=== PATIENT | male | born 1950 | race Caucasian/White ===

== ENCOUNTER 2019-11-28 21:05 | Inpatient (IN) | payer MEDICARE, SELFPAY ==
--- NOTE | ~2019-11-28 | XR_ITS ---
EXAMINATION: XR chest 1V portable INDICATION: Weakness and fever TECHNIQUE: Portable AP chest at 2235 hours COMPARISON: 10/14/2007 FINDINGS: The lungs are free of acute opacities. There is no pleural effusion or pneumothorax. The ca rdiomediastinal silhouette is normal. IMPRESSION: 1. No acute cardiopulmonary abnormality. Reviewed, dictated and finalized at location A.
--- NOTE | ~2019-11-28 | CT_ITS ---
EXAMINATION: CT abdomen pelvis w con DATE: 11/29/2019 04:30 INDICATION: Abdominal pain, diarrhea TECHNIQUE: Computed tomography (CT) of the abdomen and pelvis was performed with 100 cc Omnipaque 350 intravenous contrast. Automated exposure control and iterative reconstruction technique were employe d. Exam dose: 460.49 mGy-cm total exam DLP. COMPARISON: 10/10/2006 CT abdomen FINDINGS: The lung bases are clear of infiltrate or consolidation. Normal heart size. No pericardial or pleural effusion. Small sliding hiatal hernia. Status post cholecystectomy. 1.3 cm cyst at the inferior tip of the right hepatic lobe; probable several millimeter hepatic dome c yst. The liver, spleen, pancreas, bile ducts and pancreatic duct, and adrenal glands are otherwise un remarkable. Approximately 1 cm left renal cyst. Probable 4 mm right renal cyst. No urinary tract calculus or hydroureteronephrosis. There is mild to moderate diffuse urinary bladder wall thickening. There is prostate enlargement and calcification. There is atherosclerotic calcification but normal caliber of the abdominal aorta and iliac arteries. No intraperitoneal or retroperitoneal or pelvic mass lesion or adenopathy or ascites. Normal appendix. There is thickening of the wall and pericholecystic fat stranding of the right colon up to the hepati c flexure, consistent with acute colitis. No intraperitoneal free air. There is a small amount of olena e fluid in the dependent pelvis. Degenerative changes of lumbar spine including severe degenerative disc disease and mild retrolisthes is at L2-3, mildly severe degenerative disc disease at L5-S1 with minimal retrolisthesis. There is grade 1 anterolisthesis at L4-5 due to degenerative change at the apophyseal joints. No suspicious osteolytic or osteoblastic lesions are detected. IMPRESSION: Right colitis Small sliding hiatal hernia Normal appendix Status post cholecystectomy Hepatic and renal cysts Reviewed, dictated and finalized at Location [facility]. Reviewed, dictated and finalized at location A.
[2019-11-28 21:35] VITALS: BP 128/75; PULSE 114; RESP 16; TEMP 39.4; O2SAT 99
[2019-11-28 22:01] LABS: Basophils Percent Auto 0.2 % (0.2-1.2); Hematocrit 42.8 % (42.0-52.0); Hemoglobin 15.6 g/dL (14.0-18.0); Immature Granulocyte Absolute 0.05 K/mm3 (0.00-0.031); Immature Granulocyte Percent A 0.4 % (0-0.5); Lymphocytes Absolute Auto 0.57 K/mm3 (0.9-3.2); Lymphocytes Percent Auto 4.7 % (18.3-44.2); Mean Corpuscular HGB Conc 36.4 g/dl (32-36); Mean Corpuscular Hemoglobin 35.1 pg (26-34); Mean Corpuscular Volume 96.2 fl (80-100); Mean Platelet Volume 9.3 fl (7.4-10.4); Monocytes Absolute Auto 0.8 K/mm3 (0.1-0.6); Monocytes Percent Auto 6.8 % (2.6-8.5); Neutrophils Absolute Auto 10.6 K/mm3 (1.3-6.7); Neutrophils Percent Auto 87.9 % (45.5-73.1); Platelet Count Result 161 k/mm3 (150-375); Red Blood Count 4.45 M/mm3 (4.6-6.20); Red Cell Distribution Width 11.9 % (11.5-14.5); White Blood Count 12.1 K/mm3 (4.5-10.0)
--- NOTE | 2019-11-28 22:04 | ED.FEVER ---
HPI - Fever General Chief Complaint: Fever Stated Complaint: possible covid-19, fever increasing Time Seen by Provider: 11/28/19 22:01 Source: RN notes reviewed History of Present Illness HPI Narrative: Patient presents emergency department from home for fever. He states that symptoms began yesterday. States has been having intermittent fevers states he is taken no Tylenol or medication for the fever today. He states his only associated symptom is some diarrhea. He denies any rhinorrhea sore throat cough shortness of breath chest pain abdominal pain nausea vomiting or any other symptoms. Patient denies any COVID contacts Related Data Allergies Allergy/AdvReac Type Severity Reaction Status Date / Time No Known Allergies Allergy Unknown Verified 01/22/19 13:08 Review of Systems Review of Systems: Narrative: Gen.: Reports fever Eyes: Denies eye pain or visual change ENT: Denies congestion Respiratory: Denies shortness of breath or cough CV: Denies chest pain or palpitations GI: Denies abdominal pain nausea, emesis ports diarrhea denies burning, urgency, frequency or hematuria Musculoskeletal: Denies back pain or muscle pain Neuro: Denies numbness, tingling, reports generalized weakness Skin: Denies rash Except as documented, all other systems reviewed and negative [facility] Past Medical History Medical History (Updated 11/29/19 @ 04:02 by Rudy Vaz DO) Gastro-esophageal reflux disease without esophagitis Surgical History Surgical History Status post laparoscopic cholecystectomy Family History Family History Father Family history of aortic aneurysm Sibling Patient's sister is in good health Social History Social History Years smoked: 12 Smoking status: Former smoker Tobacco type: cigarettes and pipe Second hand tobacco smoke exposure: No Smoking end date: 02/21/99 Alcohol intake: current Drinks per week: 4 Substance use: never Substance use type: does not use Gender identity (if verbalized by the patient): Male Exam Narrative: Exam Narrative: APPEARANCE: No acute distress, nontoxic, resting in bed EYES: EOMI HEENT: Normocephalic, atraumatic, OMM RESPIRATORY: No respiratory distress Clear to auscultation bilaterally with no rhonchi wheezing or rales. CARDIOVASCULAR: Regular rate and rhythm without murmurs rubs or gallops. ABDOMINAL: Soft, nontender, nondistended, no rebound or guarding MUSCULOSKELETAl: Moves all extremities. No clubbing, cyanosis or edema. NEURO: Awake and alert. Following commands, speech normal, no focal deficits SKIN:: Warm, dry. No rashes lesions or abrasions PSYCHIATRIC: Normal affect/mood, Course [employer] Physician Supervision Discussed with Dr. Rodriguez presentation work-up. Agrees with plan for covert swab and discharge follow-up as an outpatient Patient with several episodes of watery diarrhea in the ED. Denies any recent travel or recent antibiotics started noticing mild pain on the right abdomen will obtain CT scan at this time Discussed with Dr. Camejo presentation work-up. Agrees with admission at this time Discussed with patient and family results of workup and diagnosis. Discussed need for admission. Patient and family understand and agree to current treatment plan Vital Signs Vital signs: Vital Signs Temperature 103.0 F H 11/28/19 21:35 Pulse Rate 114 H 11/28/19 21:35 Respiratory Rate 16 11/28/19 21:35 Blood Pressure 128/75 11/28/19 21:35 Pulse Oximetry 99 11/28/19 21:35 Temperature 101.8 F H 11/29/19 00:00 Pulse Rate 92 11/28/19 23:57 Respiratory Rate 18 11/28/19 23:57 Blood Pressure 119/71 11/28/19 23:57 Pulse Oximetry 98 11/28/19 23:57 MDM - Fever Lab Data Result diagrams: 11/28/19 21:51 11/28/19 21:51 Labs: L
[2019-11-28 22:15] LABS: Lactic Acid Reflex 0.8 mmol/L (0.7-2.1)
[2019-11-28 22:16] VITALS: BP 130/80; PULSE 107; RESP 18; O2SAT 98
[2019-11-28 22:16] LABS: Alanine Aminotransferase 14 U/L (4-50); Albumin Level 4.3 g/dL (3.5-5.1); Alkaline Phosphatase 54 U/L (38-126); Anion Gap 11 mmol/L (8-16); Aspartate Amino Transferase 29 U/L (17-59); Bilirubin,Total 1.5 mg/dL (0.2-1.3); Blood Urea Nitrogen 10 mg/dL (9-20); Calcium 8.9 mg/dL (8.4-10.2); Carbon Dioxide 28 mmol/L (22-30); Chloride 93 mmol/L (98-107); Estimated Glomerular Filt Rate > 60; Glucose 114 mg/dL (75-110); Potassium 3.9 mmol/L (3.4-5.0); Sodium 132 mmol/L (137-145)
[2019-11-28 22:28] VITALS: RESP 18
[2019-11-28] MEDS: SODIUM CHLORIDE 0.9% IV 1,000 ML 999 ML IV CONT (23:22)
[2019-11-28 23:29] LABS: Add Urine Microscopic? YES; Appearance Urine Cloudy (Clear); Bacteria Urine Trace /hpf; Bilirubin Urine Negative (Negative); Blood Urine 2+ (Negative); Color Urine Yellow (Yellow); Glucose Urine UA Negative (Negative); Ketones Urine 1+ mg/dL (Negative); Leukocyte Esterase Ur Negative LEU/UL (Negative); Mucus Urine Heavy /lpf; Nitrate Urine Negative (Negative); Protein Urine 1+ mg/dL (Negative); Specific Grav Ur 1.015 (1.001-1.035); Squamous Epithelial Cell Urine Rare /hpf (Few); Urobilinogen Urine Negative mg/dL (<2.0); WBC Urine 0-3 /hpf
[2019-11-28 23:51] VITALS: TEMP 38.3
[2019-11-28 23:57] VITALS: BP 119/71; PULSE 92; RESP 18; O2SAT 98
[2019-11-29] VITALS (16 sets, daily range): BP systolic 99–131; BP diastolic 51–73; PULSE 76–107; RESP 16–18; TEMP 36.8–39.6; O2SAT 97–98; BMI 26.4
--- NOTE | 2019-11-29 04:08 | PC.NURSE ---
Per House Sup/Tom, Dr. Camejo wants COVID swab cancelled. Lab/Myriam notified.
[2019-11-29] MEDS: KETOROLAC 30 MG/ML VIAL (*BKC) IV PUSH (05:01)
--- NOTE | 2019-11-29 05:09 | ADMGEN ---
This patient, Francisco Renteria, was admitted to [facility] Surg Room 314-01. Patient/family oriented to hospital policies and general routines including ID bracelet, bed and alarms, visiting hours, pain management, procedures, bathroom and other care routines, personal items, smoking policy, room service/diet, and visiting hours. Valuables list has been completed. Information on how to activate the Rapid Response Team has been discussed. Patient/Family are encouraged to report perceived risks to care and to ask questions if they do not understand what they are told or what they should do.
[2019-11-29] MEDS: SODIUM CHLORIDE 0.9% IV 1,000 ML 125 ML IV CONT (05:19)
[2019-11-29] MEDS: ACETAMINOPHEN 325 MG TABLET 650 MG PO ×3 (06:15→18:47)
--- NOTE | 2019-11-29 07:00 | PC.NURSE ---
Relocated to room 328 per hospital bed. Belongings sent and verified.
[2019-11-29] MEDS: CYANOCOBALAMIN 1,000 MCG TABLET 1000 MCG PO (09:22)
[2019-11-29] MEDS: PANTOPRAZOLE 40 MG TABLET PO (09:22)
[2019-11-29] MEDS: OPTI-GEN TAB 1 TABLET PO (09:23)
--- NOTE | 2019-11-29 09:46 | PM.IMHP ---
H&P: HPI History of Present Illness Date/Time: 11/29/19 09:46 Chief complaint: Fevers and watery diarrhea x 3 days Narrative: Francisco Renteria is a 69 year old male with history of GERD, diverticulosis irritable bowel syndrome, who presented to the ED on 11/27 from home with complaints of fevers and associated watery, nonbloody diarrhea for 2-3 days. Patient states his symptoms started suddenly and has had persistent subjective fevers/chills/rigors until presentation to ER; these seem to have resolved today. He has multiple episodes of watery, nonbloody diarrhea since symptoms started with him sometimes not making it to the bathroom in time; this has somewhat improved. He had mild cramping in lower abdomen last night which resolved realtively quickly; no current abdominal pain. No associated n/v. He has no sick contacts at home particularly with similar symptoms. Patient states he has never had this before, although upon chart review it appears he has colitis episode in 2006 is listed on past history, although CT a/p at that time makes no mention of this, but mentions diverticulosis with questionable minimal diverticulitis at right hepatic flexure. Denies history of IBD, or oral lesions. He was swabbed in the ED for COVID due to his fevers, but this appeared to be d/c overnight; he denies any close contacts with positive COVID testing/COVID symptoms, and has remained primarily at home while practicing social distancing and wearing masks if going in public. He denies any respiratory symptoms or loss of taste/smell. Otherwise patient has no other complaints at the moment. Denies myalgias/arthralgias, headaches, dizziness, lightheadedness, changes in v/h, cp/palpitations, sob/cough, n/v, current abd pain, dysuria, hematuria, cloudy urine, calf pain/swelling. While in the ED, CT ab/pelvis showed evidence of right sided colitis. He has tmax of 103.2 and WBC of 12.1k and tachycardia at presentation, meeting SIRS criteria with Colitis as suspected source of infection, technically septic. Blood cultures were drawn and are pending. Lactic acid WNL. He was placed on IV zosyn and IV fluids and admitted under this setting. Review of Systems Review of Systems: All systems reviewed & are unremarkable except as noted in HPI and below PMFSH Past Medical History Medical History Diverticulosis Gastro-esophageal reflux disease without esophagitis History of colitis Pure hypercholesterolemia Surgical History Surgical History Status post laparoscopic cholecystectomy Family History Family History Father Family history of aortic aneurysm Sibling Patient's sister is in good health Social History Social History Social History: Patient lives at home with , Siri, whom he designates as his surrogate MDM. He wishes to be Full Code. PCP is Dr. Rodriguez. Years smoked: 12 Smoking status: Former smoker Tobacco type: cigarettes and pipe Second hand tobacco smoke exposure: No Smoking end date: 02/21/99 Alcohol intake: current Drinks per week: 4 Substance use: never Substance use type: does not use Gender identity (if verbalized by the patient): Male Spiritual care concerns: No Meds Home Medications and Allergies Home Medications Medication Instructions Recorded Confirmed Type esomeprazole magnesium 40 mg 40 mg PO DAILY #90 cap 04/25/19 11/29/19 Rx capsule,delayed release cyanocobalamin (vitamin B-12) 1,000 mcg PO DAILY 11/29/19 11/29/19 History pewlarow-iqj-UY-lycopen-lutein 1 tablet PO DAILY 11/29/19 11/29/19 History [[facility]] Allergies Allergy/AdvReac Type Severity Reaction Status Date / Time No Known Allergies Allergy Unknown Verified 01/22/19 13:08 Vital Signs Vital Sig
[2019-11-29 09:52] LABS: Hematocrit 42.5 % (42.0-52.0); Hemoglobin 15.3 g/dL (14.0-18.0); Mean Corpuscular Hemoglobin 35.4 pg (26-34); Mean Corpuscular Volume 98.4 fl (80-100); Mean Platelet Volume 9.1 fl (7.4-10.4); Platelet Count Result 144 k/mm3 (150-375); Red Blood Count 4.32 M/mm3 (4.6-6.20); White Blood Count 10.9 K/mm3 (4.5-10.0)
[2019-11-29 10:06] LABS: Albumin Level 4.2 g/dL (3.5-5.1); Alkaline Phosphatase 46 U/L (38-126); Anion Gap 13 mmol/L (8-16); Aspartate Amino Transferase 34 U/L (17-59); Bilirubin,Total 1.4 mg/dL (0.2-1.3); Blood Urea Nitrogen 14 mg/dL (9-20); Calcium 8.7 mg/dL (8.4-10.2); Carbon Dioxide 25 mmol/L (22-30); Chloride 95 mmol/L (98-107); Estimated CRCL calculation 59 ml/min; Estimated Glomerular Filt Rate > 60; Glucose 141 mg/dL (75-110); Potassium 3.6 mmol/L (3.4-5.0); Sodium 133 mmol/L (137-145)
[2019-11-29 10:10] LABS: Atypical Lymphocytes Present; Platelet Estimate Adequate (Adequate)
[2019-11-29 10:11] LABS: Band Neutrophils Percent 4 % (0-6); Lymphocytes Absolute Manual 0.76 K/mm3 (1.1-4.5); Lymphocytes Percent Manual 7 % (18-44); Monocytes Absolute Manual 0.65 K/mm3 (0.1-0.90); Monocytes Percent Manual 6 % (3-9); Neutrophils Absolute Manual 9.48 K/mm3 (1.3-6.7); Neutrophils Percent Manual 83 % (46-73); Total Cells Counted 100
[2019-11-29 10:13] LABS: Alanine Aminotransferase 20 U/L (4-50)
--- NOTE | 2019-11-29 16:11 | WPDGICN ---
Assessment and Plan Assessment and plan (1) Diarrhea: Code(s): R19.7 - Diarrhea, unspecified Status: Acute Assessment and Plan: stool samples pending, he has been sick for almost 3 days. Also is interesting that he got a new puppy just recently continue with medical care, fluids and antibiotics (2) Colitis: Code(s): K52.9 - Noninfective gastroenteritis and colitis, unspecified Status: Acute Assessment and Plan: found by ct scan will need a colonoscopy in about 4-5 weeks to assess for healing (3) Sepsis: Code(s): A41.9 - Sepsis, unspecified organism Status: Acute Assessment and Plan: due to colitis covid-19 pending (4) Gastro-esophageal reflux disease without esophagitis: Code(s): K21.9 - Gastro-esophageal reflux disease without esophagitis Status: Acute Assessment and Plan: chronically on ppi (5) Leukocytosis: Code(s): D72.829 - Elevated white blood cell count, unspecified Status: Acute GI Consult Note Consult date/time: 11/29/19 16:11 Reason for consult: colitis HPI: Francisco Renteria is a 69 year old male with history of GERD, diverticulosis, cholecystectomy, irritable bowel syndrome with last colonoscopy years ago, who came to the ED yesterday 3 days of chills, fever and several episodes of runny,nonbloody large amount of diarrhea. He had fever up to 103, also leukocytosis 12k. CT scan showed right sided colitis. No much of abdominal pain. Stool samples and COVID-19 test pending. He says that about 2 weeks ago he got a new puppy. Review of Systems Constitutional: Constitutional: Reports chills and Reports fever(s) Eyes: Eyes: Denies blurry vision ENT: Reports Normal hearing present, Denies headache(s) and Denies neck pain Cardiovascular: Cardiovascular: Denies chest pain and Denies dyspnea Respiratory: Respiratory: Denies dyspnea Gastrointestinal: Gastrointestinal: Reports diarrhea Genitourinary: Genitourinary: Denies dysuria Musculoskeletal: Musculoskeletal: Denies neck pain Integumentary/Breasts: Skin/Breast: Denies dry skin Neurologic: Reports Normal hearing present, Denies headache(s) and Denies weakness Psychiatric: Psychiatric: Denies anxiety Endocrine: Endocrine: Denies change in body appearance Hematologic/Lymphatic: Hematologic/Lymphatic: Denies easy bleeding Allergic/Immunologic: Allergic/Immunologic: Denies urticaria PMFSH Past Medical History Medical History (Updated 11/29/19 @ 16:16 by Tony Clemente MD) Diarrhea Diverticulosis Gastro-esophageal reflux disease without esophagitis History of colitis Leukocytosis Pure hypercholesterolemia Surgical History Surgical History Status post laparoscopic cholecystectomy Family History Family History Father Family history of aortic aneurysm Sibling Patient's sister is in good health Social History Social History Social History: Patient lives at home with , Siri, whom he designates as his surrogate MDM. He wishes to be Full Code. PCP is Dr. Rodriguez. Years smoked: 12 Smoking status: Former smoker Tobacco type: cigarettes and pipe Second hand tobacco smoke exposure: No Smoking end date: 02/21/99 Alcohol intake: current Drinks per week: 4 Substance use: never Substance use type: does not use Gender identity (if verbalized by the patient): Male Spiritual care concerns: No Meds Home Medications and Allergies Home Medications Medication Instructions Recorded Confirmed Type esomeprazole magnesium 40 mg 40 mg PO DAILY #90 cap 04/25/19 11/29/19 Rx capsule,delayed release cyanocobalamin (vitamin B-12) 1,000 mcg PO DAILY 11/29/19 11/29/19 History rgvxysxf-adi-GM-lycopen-lutein 1 tablet PO DAILY 11/29/19 11/29/19 History [[facility]
[2019-11-29 16:38] LABS: SARS-CoV-2 RNA PCR Negative
[2019-11-29] MEDS: SODIUM CHLORIDE 0.9% IV 1,000 ML 80 ML IV CONT (16:52)
[2019-11-30 03:12] VITALS: TEMP 38.6
[2019-11-30] MEDS: ACETAMINOPHEN 325 MG TABLET 650 MG PO (03:12)
[2019-11-30 03:59] VITALS: TEMP 37.4
[2019-11-30 06:00] VITALS: BP 129/66; PULSE 75; RESP 16; TEMP 36.4; O2SAT 100
[2019-11-30 06:45] LABS: Hematocrit 37.2 % (42.0-52.0); Hemoglobin 13.2 g/dL (14.0-18.0); Mean Corpuscular HGB Conc 35.5 g/dl (32-36); Mean Corpuscular Hemoglobin 34.5 pg (26-34); Mean Corpuscular Volume 97.1 fl (80-100); Mean Platelet Volume 9.5 fl (7.4-10.4); Platelet Count Result 124 k/mm3 (150-375); Red Blood Count 3.83 M/mm3 (4.6-6.20)
[2019-11-30] MEDS: SODIUM CHLORIDE 0.9% IV 1,000 ML 80 ML IV CONT ×2 (06:55→21:11)
[2019-11-30 07:15] LABS: Alanine Aminotransferase 15 U/L (4-50); Albumin Level 3.4 g/dL (3.5-5.1); Alkaline Phosphatase 41 U/L (38-126); Anion Gap 6 mmol/L (8-16); Aspartate Amino Transferase 32 U/L (17-59); Blood Urea Nitrogen 9 mg/dL (9-20); Calcium 8.2 mg/dL (8.4-10.2); Carbon Dioxide 29 mmol/L (22-30); Chloride 103 mmol/L (98-107); Estimated CRCL calculation 64 ml/min; Estimated Glomerular Filt Rate > 60; Glucose 101 mg/dL (75-110); Magnesium 2.1 mg/dL (1.6-2.3); Potassium 3.5 mmol/L (3.4-5.0); Sodium 138 mmol/L (137-145)
[2019-11-30 07:44] LABS: Band Neutrophils Percent 8 % (0-6); Lymphocytes Absolute Manual 0.78 K/mm3 (1.1-4.5); Lymphocytes Percent Manual 13 % (18-44); Monocytes Absolute Manual 0.36 K/mm3 (0.1-0.90); Monocytes Percent Manual 6 % (3-9); Neutrophils Absolute Manual 4.86 K/mm3 (1.3-6.7); Neutrophils Percent Manual 73 % (46-73); Total Cells Counted 100
[2019-11-30 07:45] LABS: Platelet Estimate Adequate (Adequate)
[2019-11-30] MEDS: OPTI-GEN TAB 1 TABLET PO (10:14)
[2019-11-30] MEDS: PANTOPRAZOLE 40 MG TABLET PO (10:14)
[2019-11-30] MEDS: CYANOCOBALAMIN 1,000 MCG TABLET 1000 MCG PO (10:14)
--- NOTE | 2019-11-30 10:31 | PM.IMPN ---
Progress Note: A&P Assessment and Plan (1) Sepsis: Code(s): A41.9 - Sepsis, unspecified organism Status: Acute Assessment and Plan: Patient with tmax 103.2 (still having occasional fevers), tachycardia initially (resolved), and WBC of 12.1k on arrival (resolved, 6.0k this morning) meeting SIRS criteria; lactic acid normal; Colitis as suspected source. COVID swab obtained to rule out other etiologies; this was negative. Placed on IV Zosyn and IV fluids from the ED. Please see below. Continue treatment of colitis (2) Colitis: Code(s): K52.9 - Noninfective gastroenteritis and colitis, unspecified Status: Acute Assessment and Plan: CT ab/pelvis suggestive of Colitis. IV zosyn and IV fluids started from ED. Patient states he has seen Dr. Mcdowell in the past. Discussed case with Dr. Mcdowell who recommended stool studies and continue zosyn for now; he is out of town and thus Dr. Hopson would be consulted. This was discussed with him, as well who, agreed with current care and with consult; appreciate recommendations. C diff negative. Other stool studies pending. estrada VANNTAmilcar Obtain stool studies as described above Continue IV zosyn for now Advance to HH diet today IV fluids for today; likely d/c tomorrow if improvement in diarrhea Monitor for improvement (3) Gastro-esophageal reflux disease without esophagitis: Code(s): K21.9 - Gastro-esophageal reflux disease without esophagitis Status: Acute Assessment and Plan: Continue PPI (4) Pure hypercholesterolemia: Code(s): E78.00 - Pure hypercholesterolemia, unspecified Status: Acute Assessment and Plan: Appears to be diet controlled F/u with PCP (5) Person under investigation for COVID-19: Code(s): Z20.828 - Contact with and (suspected) exposure to other viral communicable diseases Status: Ruled-out Assessment and Plan: COVID testing negative. COVID less likely as colitis likely source of fevers with negative covid testing Subjective Date/time seen: 11/30/19 10:31 Interval history: Patient is a 69 year old male with history of GERD, diverticulosis irritable bowel syndrome, who is seen in follow up for right sided colitis. Patient states his diarrhea is still ongoing, but amount maybe slightly less. Still needing to go to the bathroom several times overnight. Notes his stool changed color to green, but denies mucus or blood in stool. Minimal abdominal cramping in his upper abdomen today. Subjective fevers currently with some feeling of sweats. No other complaints. Denies myalgias/arthralgias, headaches, dizziness, lightheadedness, cp/palpitations, sob/cough, n/v, current abd pain, dysuria, hematuria, cloudy urine, calf pain/swelling. Review of Systems Review of Systems: All systems reviewed & are unremarkable except as noted in HPI and below Exam Narrative: Exam Narrative: Patient lying in semi-wilhelm's position at time of visit. No acute distress Const: General: cooperative, comfortable, no acute distress, well developed, alert and awake Nutritional Appearance: well nourished Orientation/consciousness: patient oriented x3 HENMT: Head: normocephalic and atraumatic General nose exam: Normal nares present Face and sinus: face symmetric Mouth: Yes Normal oral and palatal mucosa present (no evidence of oral lesions) and Yes moist mucous membranes Throat: posterior oropharynx normal Eyes: General: appearance normal, both eyes and all related structures EOM: EOMs intact bilaterally Neck: Neck: trachea midline and supple Resp: Effort & Inspection: able to speak in complete sentences Auscultation: clear to auscultation bilaterally Cardio: Rate: regular rate Rhythm: regular rhythm Heart sounds: S1 nor
[2019-11-30 14:00] VITALS: BP 108/57; PULSE 83; RESP 18; TEMP 37; O2SAT 97
--- NOTE | 2019-11-30 16:53 | WPDGIPROGNO ---
Progress Note: A&P Assessment and Plan (1) Diarrhea: Code(s): R19.7 - Diarrhea, unspecified Status: Acute Assessment and Plan: stool samples obtained and pending continue with medical treatment and supportive care, already doing much better probably can go home tomorrow (2) Leukocytosis: Code(s): D72.829 - Elevated white blood cell count, unspecified Status: Acute Assessment and Plan: resolved (3) Colitis: Code(s): K52.9 - Noninfective gastroenteritis and colitis, unspecified Status: Acute Assessment and Plan: colonoscopy in 4-5 weeks to assess for healing of colitis. Subjective Date/time seen: 11/30/19 16:53 Interval history: he is doing better, no more fever, eating more and less diarrhea. He is having a better day. Review of Systems Review of Systems: All systems reviewed & are unremarkable except as noted in HPI and below Exam Const: General: comfortable and no acute distress HENMT: General nose exam: Normal nares present Eyes: General: appearance normal, both eyes and all related structures Neck: Neck: no JVD Resp: Auscultation: clear to auscultation bilaterally Cardio: Rate: regular rate Rhythm: regular rhythm GI: Inspection: non-distended GI Palp: Yes Soft to palpation Skin: General skin exam: normal color Neuro: General: gait normal Speech: normal speech Extrem: General: normal to inspection Psych: Mental Status: mental status grossly normal Objective Data Vital Signs Vital Signs: Vital Signs - 24 hr 11/29/19 17:05 11/29/19 19:43 11/29/19 22:00 Temperature 100.2 F H 100.1 F H 99.0 F Pulse Rate 90 76 Respiratory Rate 16 16 Blood Pressure 99/51 L 116/59 L Pulse Oximetry 97 97 11/30/19 03:12 11/30/19 03:59 11/30/19 06:00 Temperature 101.4 F H 99.4 F 97.5 F L Pulse Rate 75 Respiratory Rate 16 Blood Pressure 129/66 Pulse Oximetry 100 11/30/19 14:00 Temperature 98.6 F Pulse Rate 83 Respiratory Rate 18 Blood Pressure 108/57 L Pulse Oximetry 97 Intake/Output Intake/Output: Intake & Output 11/27/19 11/28/19 11/29/19 11/30/19 23:59 23:59 23:59 23:59 Intake Total 100 4420 2120 Output Total 1100 Balance 100 3320 2120 Meds/Results Medications: Active Medications Generic Name Dose Route Start Last Admin Trade Name Chiqui PRN Reason Stop Dose Admin Acetaminophen 650 mg 11/29/19 05:59 11/30/19 03:12 Acetaminophen 325 Mg Tablet PO 650 mg Q4H PRN Administration Mild Pain (1-3) or Fever Cyanocobalamin 1,000 mcg 11/29/19 09:00 11/30/19 10:14 Cyanocobalamin 1,000 Mcg Tablet PO 1,000 mcg DAILY JUWAN Administration Sodium Chloride 1,000 mls @ 80 mls/hr 11/29/19 03:55 11/30/19 06:55 Normal Saline Iv IV CONT 80 mls/hr .[id number] JUWAN Administration Piperacillin/Tazobactam/Dextrose 3.375 gm in 50 mls @ 100 mls/hr 11/29/19 10:00 11/30/19 16:35 Zosyn 3.375 Gm/D5w 50ml Pm IVPB Infused Q6H JUWAN Infusion Multivitamins/Minerals 1 tablet 11/29/19 09:00 11/30/19 10:14 Opti-Gen Tab PO 1 tablet DAILY JUWAN Administration Pantoprazole Sodium 40 mg 11/29/19 09:00 11/30/19 10:14 Pantoprazole 40 Mg Tablet PO 40 mg QAM JUWAN Administration Radiology Results: ITS Impressions Chest X-Ray 11/28/19 23:06 IMPRESSION: 1. No acute cardiopulmonary abnormality. Abdomen/Pelvis CT 11/29/19 07:55 IMPRESSION: Right colitis Small sliding hiatal hernia Normal appendix Status post cholecystectomy Hepatic and renal cysts Labs Labs: Laboratory Results - last 24 hr 11/29/19 11/30/19 11/30/19 09:50 05:57 05:57 WBC 6.0 RBC 3.83 L Hgb 13.2 L Hct 37.2 L MCV 97.1 MCH 34.5 H MCHC 35.5 RDW 12.0 Plt Count 124 L MPV 9.5 Immature Gran % (Auto) Not Reportable Neut % (Auto) Not Reportable Lymph % (Auto) Not Reportable [place] % (Auto) Not Reportable Eos % (Auto) Not Reportable
[2019-11-30 22:00] VITALS: BP 118/65; PULSE 71; RESP 16; TEMP 37.2; O2SAT 99
[2019-12-01 04:58] LABS: Hematocrit 33.8 % (42.0-52.0); Hemoglobin 12.1 g/dL (14.0-18.0); Mean Corpuscular HGB Conc 35.8 g/dl (32-36); Mean Corpuscular Hemoglobin 34.2 pg (26-34); Mean Corpuscular Volume 95.5 fl (80-100); Mean Platelet Volume 9.4 fl (7.4-10.4); Platelet Count Result 125 k/mm3 (150-375); Red Blood Count 3.54 M/mm3 (4.6-6.20); Red Cell Distribution Width 11.9 % (11.5-14.5); White Blood Count 6.8 K/mm3 (4.5-10.0)
[2019-12-01 05:25] LABS: Potassium 3.5 mmol/L (3.4-5.0)
[2019-12-01 05:29] LABS: Anion Gap 5 mmol/L (8-16); Blood Urea Nitrogen 7 mg/dL (9-20); Carbon Dioxide 29 mmol/L (22-30); Chloride 106 mmol/L (98-107); Estimated CRCL calculation 64 ml/min; Estimated Glomerular Filt Rate > 60; Glucose 98 mg/dL (75-110); Magnesium 2.1 mg/dL (1.6-2.3); Sodium 140 mmol/L (137-145)
[2019-12-01 06:00] VITALS: BP 121/63; PULSE 68; RESP 16; TEMP 36.8; O2SAT 99
[2019-12-01] MEDS: CYANOCOBALAMIN 1,000 MCG TABLET 1000 MCG PO (08:20)
[2019-12-01] MEDS: PANTOPRAZOLE 40 MG TABLET PO (08:20)
[2019-12-01] MEDS: OPTI-GEN TAB 1 TABLET PO (08:20)
[2019-12-01] MEDS: SODIUM CHLORIDE 0.9% IV 1,000 ML 80 ML IV CONT (10:22)
--- NOTE | 2019-12-01 11:13 | PM.IMPN ---
Progress Note: A&P Assessment and Plan (1) Sepsis: Code(s): A41.9 - Sepsis, unspecified organism Status: Acute Assessment and Plan: Patient with tmax 103.2 (still having occasional fevers), tachycardia initially (resolved), and WBC of 12.1k on arrival (resolved, 6.8k this morning) meeting SIRS criteria; lactic acid normal; Colitis as suspected source. COVID swab obtained to rule out other etiologies; this was negative. Placed on IV Zosyn and IV fluids from the ED. Please see below. Continue treatment of colitis (2) Colitis: Code(s): K52.9 - Noninfective gastroenteritis and colitis, unspecified Status: Acute Assessment and Plan: CT ab/pelvis suggestive of Colitis. IV zosyn and IV fluids started from ED. Patient states he has seen Dr. Mcdowell in the past. Discussed case with Dr. Mcdowell who recommended stool studies and continue zosyn for now; he is out of town and thus Dr. Hopson would be consulted. This was discussed with him, as well who, agreed with current care and with consult; appreciate recommendations. C diff, cryptosporidium, and giardia negative. Other stool studies pending. BCx NGTD Obtain stool studies as described above Continue IV zosyn for now; likely discharge on cipro and flagyl at discharge Continue HH diet Continue light IV fluids for today Monitor for improvement (3) Gastro-esophageal reflux disease without esophagitis: Code(s): K21.9 - Gastro-esophageal reflux disease without esophagitis Status: Acute Assessment and Plan: Continue PPI (4) Pure hypercholesterolemia: Code(s): E78.00 - Pure hypercholesterolemia, unspecified Status: Acute Assessment and Plan: Appears to be diet controlled F/u with PCP (5) Person under investigation for COVID-19: Code(s): Z20.828 - Contact with and (suspected) exposure to other viral communicable diseases Status: Ruled-out Assessment and Plan: COVID testing negative. COVID less likely as colitis likely source of fevers with negative covid testing Subjective Date/time seen: 12/01/19 11:13 Interval history: Patient is a 69 year old male with history of GERD, diverticulosis irritable bowel syndrome, who is seen in follow up for right sided colitis. Patient states his diarrhea is still ongoing, with about 5 BMs since about 5:00 am this morning; noting green and with some bubbles. Leos with defecation. No blood or black stool however. He was feeling better yesterday afternoon and evening, but this morning feels worse. Would feel more comfortable staying one more night since he still has frequent BMs and is unsure if he can stay adequately hydrated. No abdominal pain/cramping today and fevers/chills have resolved. No other complaints. Denies myalgias/arthralgias, headaches, dizziness, lightheadedness, cp/palpitations, sob/cough, n/v, current abd pain, dysuria, hematuria, cloudy urine, calf pain/swelling. Review of Systems Review of Systems: All systems reviewed & are unremarkable except as noted in HPI and below Exam Narrative: Exam Narrative: Patient standing with IV pole at time of visit. No acute distress Const: General: cooperative, comfortable, no acute distress, well developed, alert and awake Nutritional Appearance: well nourished Orientation/consciousness: patient oriented x3 HENMT: Head: normocephalic and atraumatic General nose exam: Normal nares present Face and sinus: face symmetric Mouth: Yes moist mucous membranes Throat: posterior oropharynx normal Eyes: General: appearance normal, both eyes and all related structures EOM: EOMs intact bilaterally Neck: Neck: trachea midline and supple Resp: Effort & Inspection: able to speak in complete sentences Auscultation: clear to
[2019-12-01 14:00] VITALS: BP 122/71; PULSE 70; RESP 16; TEMP 37.5; O2SAT 99
[2019-12-01 21:00] VITALS: BP 130/72; PULSE 61; RESP 18; TEMP 36.6; O2SAT 100
[2019-12-02] MEDS: SODIUM CHLORIDE 0.9% IV 1,000 ML 50 ML IV CONT (03:29)
[2019-12-02 05:55] VITALS: BP 128/71; PULSE 66; RESP 18; TEMP 36.7; O2SAT 100
[2019-12-02 06:00] LABS: Hematocrit 35.8 % (42.0-52.0); Hemoglobin 12.9 g/dL (14.0-18.0); Mean Corpuscular Hemoglobin 34.1 pg (26-34); Mean Corpuscular Volume 94.7 fl (80-100); Mean Platelet Volume 9.5 fl (7.4-10.4); Platelet Count Result 141 k/mm3 (150-375); Red Blood Count 3.78 M/mm3 (4.6-6.20); Red Cell Distribution Width 11.9 % (11.5-14.5); White Blood Count 4.8 K/mm3 (4.5-10.0)
[2019-12-02 06:07] LABS: Alanine Aminotransferase 23 U/L (4-50); Albumin Level 3.3 g/dL (3.5-5.1); Alkaline Phosphatase 41 U/L (38-126); Anion Gap 4 mmol/L (8-16); Aspartate Amino Transferase 38 U/L (17-59); Bilirubin,Total 0.8 mg/dL (0.2-1.3); Blood Urea Nitrogen 6 mg/dL (9-20); Calcium 8.5 mg/dL (8.4-10.2); Carbon Dioxide 31 mmol/L (22-30); Chloride 105 mmol/L (98-107); Estimated CRCL calculation 79 ml/min; Estimated Glomerular Filt Rate > 60; Glucose 99 mg/dL (75-110); Magnesium 2.2 mg/dL (1.6-2.3); Potassium 3.5 mmol/L (3.4-5.0); Sodium 140 mmol/L (137-145)
--- NOTE | 2019-12-02 08:50 | PM.DS ---
DS: Admitting Diagnosis Admitting Diagnosis Admitting Diagnosis: Fevers and watery diarrhea x 3 days DS: Discharge Diagnosis Discharge Diagnosis (1) Sepsis: Code(s): A41.9 - Sepsis, unspecified organism Status: Acute Assessment and Plan: Patient with tmax 103.2 (afebrile >24 hours), tachycardia initially (resolved), and WBC of 12.1k on arrival (resolved, 4.8k this morning) meeting SIRS criteria; lactic acid normal; Colitis as suspected source. COVID swab obtained to rule out other etiologies; this was negative. Placed on IV Zosyn and IV fluids from the ED. Please see below. Continue treatment of colitis (2) Colitis: Code(s): K52.9 - Noninfective gastroenteritis and colitis, unspecified Status: Acute Assessment and Plan: CT ab/pelvis suggestive of Colitis. IV zosyn and IV fluids started from ED. Patient states he has seen Dr. Mcdowell in the past. Discussed case with Dr. Mcdowell who recommended stool studies and continue zosyn during inpatient stay; Dr. Hopson officially consulted and followed patient. Case discussed with him, as well who, agreed with current care and with consult; appreciate recommendations. C diff, cryptosporidium, and giardia negative. Other stool studies pending. BCx NGTD Follow stool studies as described above Zosyn during stay; discharge on cipro and flagyl at discharge Continue HH diet F/u with PCP and Dr. Hopson (3) Gastro-esophageal reflux disease without esophagitis: Code(s): K21.9 - Gastro-esophageal reflux disease without esophagitis Status: Acute Assessment and Plan: Continue PPI (4) Pure hypercholesterolemia: Code(s): E78.00 - Pure hypercholesterolemia, unspecified Status: Acute Assessment and Plan: Appears to be diet controlled F/u with PCP (5) Person under investigation for COVID-19: Code(s): Z20.828 - Contact with and (suspected) exposure to other viral communicable diseases Status: Ruled-out Assessment and Plan: COVID testing negative. COVID less likely as colitis likely source of fevers with negative covid testing DS: Summary Hospital Course Reason for hospitalization: Right sided colitis Hospital Course: Patient is a 69 yo M with history of GERD, diverticulosis irritable bowel syndrome, who presented to the ED on 11/27 from home with complaints of fevers and associated watery, nonbloody diarrhea for 2-3 days. While in the ED, patient was found to have evidence of right sided colitis on CT a/p. He met SIRS criteria with leukocytosis of 12.1k, temp of 103.2 and tachycardia. He was started on IV zosyn and fluids from the ED. Patient admitted under this setting. Please see H&P for further details. Presenting VS: Temp Pulse Resp BP Pulse Ox 103.0 F H 114 H 16 128/75 99 11/28/19 21:35 11/28/19 21:35 11/28/19 21:35 11/28/19 21:35 11/28/19 21:35 Presenting Pertinent labs: WBC 12.1k, Na 132, Cl 93, tot bili 1.5. Ua showed yellow/cloudy urine, 1+ protein, 1+ ketones, 2+ blood, 3-5 RBC, and heavy mucus. COVID testing negative. Rotavirus pending at time of dictation. CBC, chemistry, UA otherwise unremarkable Micro: BCx shows NGTD x 2 after 4 days. Stool cultures positive for campylobacter species; negative for shiga toxin, salmonella/shigella, c diff toxin, cryptosporidium antigen, and giardia negative. Imaging: Chest X-Ray 11/28/19 23:06 IMPRESSION: 1. No acute cardiopulmonary abnormality. Abdomen/Pelvis CT 11/29/19 07:55 IMPRESSION: Right colitis Small sliding hiatal hernia Normal appendix Status post cholecystectomy Hepatic and renal cysts ECG: none Patient was admitted to the hospitalist service for further evaluation. Dr. Hopson was consulted for further input. Patient continued on IV
[2019-12-02] MEDS: PANTOPRAZOLE 40 MG TABLET PO (09:05)
[2019-12-02] MEDS: CYANOCOBALAMIN 1,000 MCG TABLET 1000 MCG PO (09:05)
[2019-12-02] MEDS: OPTI-GEN TAB 1 TABLET PO (09:05)
[2019-12-04 17:45] LABS: Rotavirus Stool Not Detected
== END 2019-12-02 11:30 | disposition home or self-care (01) | DRG 872 ==
LOC: ANHED 11-29 04:02 → ANH3MEDSUR 11-29 04:42
PROVIDERS: Physician Assistant; Admitting Provider Internal Medicine; Emergency Provider Emergency Medicine; PCP Family Medicine; Visit Provider Internal Medicine
DX: A41.9 Sepsis, unspecified organism (principal); K52.9 Noninfective gastroenteritis and colitis, unspecified; Z20.828 Contact with and (suspected) exposure to other viral communicable diseases; K21.9 Gastro-esophageal reflux disease without esophagitis; E78.00 Pure hypercholesterolemia, unspecified
CPT/HCPCS: 36415; 71045; 74177; 80048; 80053; 81001; 83605; 83735; 85025; 85027; 87015; 87040; 87045; 87046; 87077; 87177; 87209; 87269; 87272; 87324; 87425; 87427; 87635; 96361; 96365; 96375; 99285; A9270; C9803; G0378; J0131; J1885; J2543; J7030; Q9967; U0003

== ENCOUNTER 2019-12-20 10:32 | Outpatient (CLI) | payer MEDICARE, SELFPAY ==
[2019-12-20 11:10] LABS: Basophils Percent Auto 0.3 % (0.2-1.2); Eosinophils Percent Auto 0.5 % (0-4.4); Hematocrit 43.7 % (42.0-52.0); Hemoglobin 15.3 g/dL (14.0-18.0); Immature Granulocyte Absolute 0.03 K/mm3 (0.00-0.031); Immature Granulocyte Percent A 0.5 % (0-0.5); Lymphocytes Percent Auto 19.9 % (18.3-44.2); Mean Corpuscular Hemoglobin 33.9 pg (26-34); Mean Corpuscular Volume 96.9 fl (80-100); Mean Platelet Volume 8.8 fl (7.4-10.4); Monocytes Absolute Auto 0.7 K/mm3 (0.1-0.6); Neutrophils Absolute Auto 4.1 K/mm3 (1.3-6.7); Neutrophils Percent Auto 67.8 % (45.5-73.1); Platelet Count Result 191 k/mm3 (150-375); Red Blood Count 4.51 M/mm3 (4.6-6.20); Red Cell Distribution Width 12.3 % (11.5-14.5)
[2019-12-20 11:19] LABS: Alanine Aminotransferase 17 U/L (4-50); Albumin Level 4.5 g/dL (3.5-5.1); Alkaline Phosphatase 59 U/L (38-126); Anion Gap 7 mmol/L (8-16); Aspartate Amino Transferase 25 U/L (17-59); Bilirubin,Total 1.8 mg/dL (0.2-1.3); Blood Urea Nitrogen 9 mg/dL (9-20); Calcium 9.5 mg/dL (8.4-10.2); Carbon Dioxide 34 mmol/L (22-30); Chloride 99 mmol/L (98-107); Estimated Glomerular Filt Rate > 60; Glucose 108 mg/dL (75-110); Potassium 3.9 mmol/L (3.4-5.0); Sodium 140 mmol/L (137-145)
== END 2019-12-20 10:33 | disposition home or self-care (01) ==
PROVIDERS: PCP Family Medicine; Visit Provider Family Medicine
DX: K52.9 Noninfective gastroenteritis and colitis, unspecified (principal)
CPT/HCPCS: 36415; 80053; 85025

== ENCOUNTER 2019-12-20 13:32 | Emergency (ER) | payer MEDICARE, SELFPAY ==
[2019-12-20 13:38] VITALS: BP 150/78; PULSE 82; RESP 16; TEMP 36.9; O2SAT 100
--- NOTE | 2019-12-20 13:55 | ECG_ITS ---
Measurements Intervals [place] Rate: 74 P: 67 IN: 158 QRS: 19 QRSD: 104 T: 47 QT: 362 QTc: 403 Interpretive Statements SINUS RHYTHM BASELINE ARTIFACT- I, II, AVR, AVL, AVF, V1 NORMAL ECG Electronically Signed On 12-20-2019 14:05:29 CDT by Benny Hare D.O.
[2019-12-20 14:06] LABS: Basophils Percent Auto 0.3 % (0.2-1.2); Eosinophils Percent Auto 0.3 % (0-4.4); Hemoglobin 14.7 g/dL (14.0-18.0); Immature Granulocyte Absolute 0.04 K/mm3 (0.00-0.031); Immature Granulocyte Percent A 0.4 % (0-0.5); Lymphocytes Absolute Auto 1.27 K/mm3 (0.9-3.2); Lymphocytes Percent Auto 13.5 % (18.3-44.2); Mean Corpuscular HGB Conc 35.9 g/dl (32-36); Mean Corpuscular Hemoglobin 35.4 pg (26-34); Mean Corpuscular Volume 98.8 fl (80-100); Mean Platelet Volume 8.8 fl (7.4-10.4); Monocytes Absolute Auto 0.9 K/mm3 (0.1-0.6); Monocytes Percent Auto 9.8 % (2.6-8.5); Neutrophils Absolute Auto 7.1 K/mm3 (1.3-6.7); Neutrophils Percent Auto 75.7 % (45.5-73.1); Platelet Count Result 176 k/mm3 (150-375); Red Blood Count 4.15 M/mm3 (4.6-6.20); Red Cell Distribution Width 12.6 % (11.5-14.5); White Blood Count 9.4 K/mm3 (4.5-10.0)
--- NOTE | 2019-12-20 14:08 | ED.GENADULT ---
HPI - General Adult General Chief complaint: Unspecified Stated complaint: NEAR SYNCOPE Time Seen by Provider: 12/20/19 13:36 Source: patient History of Present Illness HPI narrative: Patient is 69 y/o male complaining of severe light-headedness while he was sitting on the toilet at home approximately 1 hour ago. He states that he felt sweating, felt like he was about to pass out and fall off the toilet. However, he did not lose consciousness or fall. He had some abdominal cramp and diarrhea, but abdominal has resolved. He state that he was diagnosed with Campylobacter recently and still has residual diarrhea. Related Data Home Medications Medication Instructions Recorded Confirmed Centrum Silver Men 1 tablet PO DAILY 11/29/19 11/29/19 cyanocobalamin (vitamin B-12) 1,000 mcg PO DAILY 11/29/19 11/29/19 Allergies Allergy/AdvReac Type Severity Reaction Status Date / Time No Known Allergies Allergy Unknown Verified 12/12/19 15:41 Review of Systems Constitutional: Constitutional: Denies chills, Denies fever(s), Denies headache(s) and Denies weakness Eyes: Eyes: Denies blurry vision ENT: Denies headache(s) and Denies neck pain Cardiovascular: Cardiovascular: Denies chest pain and Denies dyspnea Respiratory: Respiratory: Denies cough and Denies dyspnea Gastrointestinal: Gastrointestinal: Reports abdominal pain, Reports diarrhea, Denies nausea and Denies vomiting Genitourinary: Genitourinary: Denies hematuria and Denies dysuria Musculoskeletal: Musculoskeletal: Denies back pain and Denies neck pain Neurologic: Reports dizziness, Denies headache(s), Denies focal weakness and Denies weakness PMFSH Past Medical History Medical History Diarrhea Diverticulosis Gastro-esophageal reflux disease without esophagitis History of colitis Leukocytosis Pure hypercholesterolemia Surgical History Surgical History Status post laparoscopic cholecystectomy Family History Family History Father Family history of aortic aneurysm Sibling Patient's sister is in good health Social History Social History Social History: Patient lives at home with , Siri, whom he designates as his surrogate MDM. He wishes to be Full Code. PCP is Dr. Rodriguez. Years smoked: 12 Smoking status: Former smoker Tobacco type: cigarettes and pipe Second hand tobacco smoke exposure: No Smoking end date: 02/21/99 Alcohol intake: current Drinks per week: 4 Substance use: never Substance use type: does not use Gender identity (if verbalized by the patient): Male Spiritual care concerns: No Exam Const: General: no acute distress and well developed Orientation/consciousness: oriented to person, oriented to place, oriented to time and patient oriented x3 HENMT: Head: normocephalic Ears: external ears normal General nose exam: Normal external nose present Eyes: General: appearance normal, both eyes and all related structures Conjunctivae: conjunctivae normal Neck: Neck: normal visual inspection and full ROM Chest: Chest palpation & inspection: normal inspection of the chest and no tenderness Resp: Effort & Inspection: normal respiratory effort Auscultation: clear to auscultation bilaterally Cardio: Rate: regular rate Rhythm: regular rhythm GI: GI Palp: No abdominal tenderness and Yes Soft to palpation Skin: General skin exam: normal color and turgor normal Neuro: General: oriented to person, oriented to place, oriented to time and patient oriented x3 Cranial nerves: Yes CN's II-XII intact bilaterally Cognition (Neuro): normal cognition Speech: normal speech Motor exam (neuro): 5/5 motor strength present throughout Sensory Exam: normal sensation Coordination: [id number] test normal and mqim-[id number]-ultt t
[2019-12-20] MEDS: SODIUM CHLORIDE 0.9% IV 1,000 ML 999 ML IV CONT (14:23)
[2019-12-20 14:29] LABS: Troponin I < 0.012 ng/mL (0.000-0.034)
[2019-12-20 14:44] LABS: Anion Gap 9 mmol/L (8-16); Blood Urea Nitrogen 10 mg/dL (9-20); Carbon Dioxide 29 mmol/L (22-30); Chloride 101 mmol/L (98-107); Estimated CRCL calculation 71 ml/min; Estimated Glomerular Filt Rate > 60; Glucose 112 mg/dL (75-110); Potassium 3.7 mmol/L (3.4-5.0); Sodium 139 mmol/L (137-145)
[2019-12-20 15:53] VITALS: BP 124/77; PULSE 83; RESP 20; O2SAT 100
[2019-12-20 17:39] LABS: Troponin I < 0.012 ng/mL (0.000-0.034)
== END 2019-12-20 18:31 | disposition home or self-care (01) ==
PROVIDERS: Emergency Provider Emergency Medicine; PCP Family Medicine
DX: R55 Syncope and collapse (principal); R42 Dizziness and giddiness; K57.90 Diverticulosis of intestine, part unspecified, without perforation or abscess without bleeding; K21.9 Gastro-esophageal reflux disease without esophagitis
CPT/HCPCS: 36415; 80048; 80053; 84484; 85025; 93005; 96360; 99284; J7030

== ENCOUNTER 2022-02-04 13:01 | Inpatient (IN) | payer MEDICARE, SELFPAY ==
[2022-02-04] VITALS (18 sets, daily range): BP systolic 124–144; BP diastolic 68–97; PULSE 62–105; RESP 14–23; TEMP 36.3–36.7; O2SAT 97–100; BMI 26.4
--- NOTE | ~2022-02-04 | XR_ITS ---
EXAMINATION: XR chest 2V DATE: 02/04/2022 13:43 INDICATION: Chest tightness TECHNIQUE: PA and lateral views of the chest are obtained. COMPARISON: 11/28/2019 FINDINGS: The lungs are free of acute opacities. No pleural effusion or pneumothorax. The cardiomedia stinal silhouette is normal. There is severe thoracic spondylosis. Surgical clips in the right upper quadrant are likely from prior cholecystectomy. Ovoid opacities projecting over the anterolateral lef t lower thorax are external to the patient. IMPRESSION: 1. No acute cardiopulmonary abnormality. Reviewed, dictated and finalized at location A. SECURITY SPECIALIST
--- NOTE | 2022-02-04 13:05 | ECG_ITS ---
Measurements Intervals [place] Rate: 63 P: 63 NE: 152 QRS: 59 QRSD: 101 T: 71 QT: 404 QTc: 416 Interpretive Statements SINUS RHYTHM COMPARED TO ECG 12/20/2019 13:34:41 NO SIGNIFICANT CHANGES Electronically Signed On 02-04-2022 16:09:34 CREDIT VERIFIER by Blanca Gerber M.D.
[2022-02-04 13:26] LABS: Basophils Percent Auto 0.4 % (0.2-1.2); Eosinophils Percent Auto 0.4 % (0-4.4); Hematocrit 42.7 % (42.0-52.0); Hemoglobin 15.2 g/dL (14.0-18.0); Immature Granulocyte Absolute 0.03 K/mm3 (0.00-0.031); Immature Granulocyte Percent A 0.4 % (0-0.5); Lymphocytes Absolute Auto 0.81 K/mm3 (0.9-3.2); Lymphocytes Percent Auto 10.1 % (18.3-44.2); Mean Corpuscular HGB Conc 35.6 g/dl (32-36); Mean Corpuscular Hemoglobin 35.4 pg (26-34); Mean Corpuscular Volume 99.5 fl (80-100); Monocytes Absolute Auto 0.5 K/mm3 (0.1-0.6); Monocytes Percent Auto 6.2 % (2.6-8.5); Neutrophils Absolute Auto 6.6 K/mm3 (1.3-6.7); Neutrophils Percent Auto 82.5 % (45.5-73.1); Platelet Count Result 165 k/mm3 (150-375); Red Blood Count 4.29 M/mm3 (4.6-6.20); Red Cell Distribution Width 12.7 % (11.5-14.5)
[2022-02-04 13:36] LABS: Alanine Aminotransferase 16 U/L (6-50); Albumin Level 4.5 g/dL (3.5-5.1); Alkaline Phosphatase 53 U/L (38-126); Anion Gap 5 mmol/L (8-16); Aspartate Amino Transferase 31 U/L (17-59); Bilirubin,Total 1.5 mg/dL (0.2-1.3); Blood Urea Nitrogen 14 mg/dL (9-20); Calcium 8.6 mg/dL (8.4-10.2); Carbon Dioxide 29 mmol/L (22-30); Chloride 100 mmol/L (98-107); Estimated Glomerular Filt Rate > 60; Glucose 119 mg/dL (65-110); Lipase 52 U/L (23-300); Potassium 3.5 mmol/L (3.4-5.0); Sodium 134 mmol/L (137-145)
[2022-02-04 13:37] LABS: INR 1.1; Prothrombin Time 13.9 Seconds (11.1-14.7)
[2022-02-04 13:38] LABS: Partial Thromboplastin Time 27.1 SECONDS (22.3-36.8)
[2022-02-04 13:50] LABS: Troponin I 0.343 ng/mL (0.000-0.034)
--- NOTE | 2022-02-04 15:00 | ED.CHESTPAIN ---
HPI - Chest Pain General Chief Complaint: Chest Pain Stated Complaint: tightness in chest X3 days, syncopal episode Time Seen by Provider: 02/04/22 14:17 Source: patient and family Mode of arrival: EMS Limitations: no limitations History of Present Illness HPI narrative: 71-year-old with a history of hypercholesterolemia, GERD here with complaints of intermittent chest tightness for last 3 days. Patient states that he was sitting on the stairs this morning passed out for few minutes. Pain is mostly in the precordial area and at times radiating into his right side of his jaw. He denies any shortness of breath. No history of nausea or vomiting or diaphoresis with the pain. Patient states that he had a stress test several years ago and was normal. MD complaint: chest pain Onset (ago): day(s) (3) Timing of current episode: now resolved Pain location: substernal, left chest and right chest Pain radiation: jaw/teeth Severity: moderate Quality: heaviness Relieving factors: nitroglycerin Exacerbating factors: nothing Treatment prior to arrival: aspirin and nitroglycerin Risk Factors Coronary artery disease risk factors: none Related Data Home Medications Medication Instructions Recorded Confirmed cyanocobalamin (vitamin B-12) 1,000 mcg PO DAILY 11/29/19 03/11/21 1,000 mcg tablet [id number]-bum-[id number] acid 300 1 tablet PO DAILY 11/29/19 03/11/21 mcg-lycopene 600 mcg-lutein 300 mcg tablet (Centrum Silver Men) Allergies Allergy/AdvReac Type Severity Reaction Status Date / Time No Known Allergies Allergy Unknown Verified 02/04/22 13:02 Review of Systems Review of Systems: All systems reviewed & are unremarkable except as noted in HPI and below Constitutional: Constitutional: Reports no additional constitutional complaints Eyes: Eyes: Reports no additional eye complaints ENT: Reports system reviewed and no additional complaints, except as documented Cardiovascular: Cardiovascular: Reports as per HPI Respiratory: Respiratory: Reports no additional respiratory complaints Gastrointestinal: Gastrointestinal: Reports no additional gastrointestinal complaints Musculoskeletal: Musculoskeletal: Reports no additional musculoskeletal complaints Integumentary/Breasts: Skin/Breast: Reports system reviewed and no additional complaints, except as docu Neurologic: Reports system reviewed and no additional complaints, except as documented PMFSH Past Medical History Medical History Diarrhea Diverticulosis Gastro-esophageal reflux disease without esophagitis History of colitis Leukocytosis Pure hypercholesterolemia Surgical History Surgical History Status post laparoscopic cholecystectomy Family History Family History Father Family history of aortic aneurysm Sibling Patient's sister is in good health Social History Social History Social History: Patient lives at home with , Siri, whom he designates as his surrogate MDM. He wishes to be Full Code. PCP is Dr. Rodriguez. Years smoked: 12 Tobacco type: cigarettes and pipe Second hand tobacco smoke exposure: No Smoking end date: 02/21/99 Alcohol intake: current Drinks per week: 4 Substance use: never Substance use type: does not use Gender identity (if verbalized by the patient): Male Spiritual care concerns: No Course Course Emergency Course: Patient presently has very minimal pain. His exam is unremarkable so is his EKG. His troponin is elevated did contact cardiology recommended admission , he was given aspirin and nitro by EMS. I will give him Lovenox 1 mg/kg. Inform patient and his family about his lab work and EKG findings agreed for admission. Vital Signs Vital signs: Vital Signs Temperature 36.7 C 02/04/22 13
[2022-02-04 15:51] LABS: Influenza A QL RT-PCR Negative (Negative); Influenza B QL RT-PCR Negative (Negative); SARS-CoV-2 RNA PCR Negative
--- NOTE | 2022-02-04 16:12 | ADMGEN ---
This patient, Francisco Renteria Jr., was admitted to IMU Room 205-02. Patient/family oriented to hospital policies and general routines including ID bracelet, bed and alarms, visiting hours, pain management, procedures, bathroom and other care routines, personal items, smoking policy, room service/diet, and visiting hours. Information on how to activate the Rapid Response Team has been discussed. Patient/Family are encouraged to report perceived risks to care and to ask questions if they do not understand what they are told or what they should do.
[2022-02-04] MEDS: SODIUM CHLORIDE 0.9% IV 1,000 ML 75 ML IV CONT (18:43)
[2022-02-04] MEDS: NITROGLYCERIN OINTMENT 1 INCH DOSE TRANSDERM ×2 (18:47→23:59)
[2022-02-04] MEDS: ENOXAPARIN 100 MG/ML SYRINGE 84 MG SUB-Q (18:47)
--- NOTE | 2022-02-04 20:05 | PM.IMHP ---
H&P: HPI History of Present Illness Date/Time: 02/04/22 20:05 Chief Complaint: Chest pain Narrative: This is a 71-year-old male patient who only has a history of GERD. He has no prior history of any coronary artery disease. The patient denies having hyperlipidemia. The patient stated that he was working out today and when he sat down for a moment to rest he passed out for few moments. The patient stated that he had chest pressure across his chest and was having right jaw pain and right arm pain. The patient denied any shortness of breath. The patient stated he had a stress test many years ago and it was negative. The patient stated that he is very active works out every day. Troponins 0.343 and 1.970. Cardiology has been consulted. EKG was read as sinus rhythm. The patient no longer has any chest pain. The patient was started on therapeutic doses of Lovenox and nitroglycerin as well as an aspirin. The patient is being admitted to inpatient status on the date of service of 02/04/2022. Review of Systems Review of Systems: See HPI All systems reviewed & are unremarkable except as noted in HPI and below Constitutional: Constitutional: Reports as per HPI and Reports no additional constitutional complaints Eyes: Eyes: Reports as per HPI and Reports no additional eye complaints ENT: Reports system reviewed and no additional complaints, except as documented and Reports Normal hearing present Cardiovascular: Cardiovascular: Reports no additional cardiovascular complaints Respiratory: Respiratory: Reports no additional respiratory complaints and Reports no additional respiratory complaints Gastrointestinal: Gastrointestinal: Reports as per HPI and Reports no additional gastrointestinal complaints Musculoskeletal: Musculoskeletal: Reports no additional musculoskeletal complaints Integumentary/Breasts: Skin/Breast: Reports system reviewed and no additional complaints, except as docu and Reports as per HPI Neurologic: Reports system reviewed and no additional complaints, except as documented, Reports as per HPI and Reports Normal hearing present Psychiatric: Psychiatric: Reports no additional psychiatric complaints and Reports as per HPI Endocrine: Endocrine: Reports no additional endocrine complaints Hematologic/Lymphatic: Hematologic/Lymphatic: Reports no additional hematologic/lymphatic complaints Allergic/Immunologic: Allergic/Immunologic: Reports no additional allergic/immunologic complaints [facility] Past Medical History Medical History Diarrhea Diverticulosis Gastro-esophageal reflux disease without esophagitis History of colitis Leukocytosis Pure hypercholesterolemia Surgical History Surgical History (Updated 02/04/22 @ 23:39 by Doris Andrews NP) H/O colonoscopy Status post laparoscopic cholecystectomy Family History Family History Father Family history of aortic aneurysm Sibling Patient's sister is in good health Sibling Cerebrovascular accident Social History Social History (Updated 02/04/22 @ 23:40 by Doris Andrews NP) Social History: Patient lives at home with , Siri, whom he designates as his surrogate MDM. The patient has 2 children and he is retired from being a bus driver . PCP is Dr. Rodriguez. Full Code Years smoked: 12 Smoking status: Never smoker Tobacco type: cigarettes and pipe Second hand tobacco smoke exposure: No Smoking end date: 02/21/99 Alcohol intake: current Drinks per week: 2 Substance use: never Substance use type: does not use Lack of Transportation: No Lack of Food: Never True Current Housing: I Have Housing Concerned About Future Housing: No Difficulty Paying Gas/Electric Bills: No Difficulty Paying for Meds: No Currently Unemployed: No Education: High School Diploma/GED Difficulty w/ Childcare or Family Care
[2022-02-05] VITALS (36 sets, daily range): BP systolic 100–133; BP diastolic 53–86; PULSE 61–90; RESP 11–20; TEMP 36.1–37.1; O2SAT 96–100
[2022-02-05 05:05] LABS: Basophils Percent Auto 0.4 % (0.2-1.2); Eosinophils Percent Auto 0.6 % (0-4.4); Hematocrit 40.2 % (42.0-52.0); Hemoglobin 14.1 g/dL (14.0-18.0); Immature Granulocyte Absolute 0.02 K/mm3 (0.00-0.031); Immature Granulocyte Percent A 0.3 % (0-0.5); Lymphocytes Absolute Auto 1.28 K/mm3 (0.9-3.2); Lymphocytes Percent Auto 18.4 % (18.3-44.2); Mean Corpuscular HGB Conc 35.1 g/dl (32-36); Mean Corpuscular Hemoglobin 35.3 pg (26-34); Mean Corpuscular Volume 100.5 fl (80-100); Mean Platelet Volume 9.4 fl (7.4-10.4); Monocytes Absolute Auto 0.6 K/mm3 (0.1-0.6); Monocytes Percent Auto 9.1 % (2.6-8.5); Neutrophils Percent Auto 71.2 % (45.5-73.1); Platelet Count Result 156 k/mm3 (150-375); Red Cell Distribution Width 12.5 % (11.5-14.5)
[2022-02-05 05:17] LABS: Alanine Aminotransferase 21 U/L (6-50); Albumin Level 4.2 g/dL (3.5-5.1); Alkaline Phosphatase 48 U/L (38-126); Anion Gap 6 mmol/L (8-16); Aspartate Amino Transferase 75 U/L (17-59); Blood Urea Nitrogen 14 mg/dL (9-20); Calcium 8.4 mg/dL (8.4-10.2); Carbon Dioxide 27 mmol/L (22-30); Chloride 106 mmol/L (98-107); Cholesterol 178 mg/dL (0-200); Estimated CRCL calculation 80 ml/min; Estimated Glomerular Filt Rate > 60; Glucose 102 mg/dL (65-110); HDL Direct 45 mg/dL; Sodium 139 mmol/L (137-145); Triglycerides 98 mg/dL (<150)
[2022-02-05 05:28] LABS: LDL Cholesterol Direct 97 mg/dL
[2022-02-05] MEDS: NITROGLYCERIN OINTMENT 1 INCH DOSE TRANSDERM (06:00)
[2022-02-05 06:07] LABS: Thyroid Stimulating Hormone Reflex 0.985 uIU/mL (0.465-4.68)
--- NOTE | 2022-02-05 07:41 | PM.CNCAR ---
Assessment and Plan Assessment and plan (1) Acute non-ST elevation myocardial infarction (NSTEMI): Code(s): I21.4 - Non-ST elevation (NSTEMI) myocardial infarction Status: Acute Plan This is a 71-year-old gentleman without previous serious medical problems and really a paucity of coronary risk factors who presents with acute coronary syndrome. Recommendation is for angiography today which the patient understands. Explained the procedure in detail to the patient well as the risks he understands this and agrees to proceed. Further recommendations of course will be forthcoming the angiographic findings Favio Montaño MD [facility] History of Present Illness History of Present Illness Consult date/time: 02/05/22 07:41 Consult reason: chest pain Reason For Visit: NSTEMI Narrative: This is a very pleasant 71-year-old man that does not have a previous history of heart disease who came into the emergency room yesterday with an episode of significant chest pain that created concern on the part of he and his . The patient states that he has been having episodes of chest pain for about 3 weeks intermittently in a nonexertional, unpredictable fashion. He says that the pain consists of a pressure or burning like substernal sensation that radiates to the right side of his jaw and into the right interscapular region of his shoulder. The discomfort is most of the time [id number] yesterday he had an episode of this that was more severe and lasted longer. He states that he was working out on a exercise bike in his home which is his habit to stay in in good shape. He I had the symptoms slightly before he started exercising they were worsened following exertion. He thought he might have had an upset stomach he tried some antacids his put a cold ice pack on his neck where he had the pain was radiating and when it did not subside he then apparently became semi responsive or unresponsive because he states his called EMS when he was staring straight ahead and did not respond to verbal stimulation for a short period of time he states the ambulance then arrived and took him to the hospital he describes experiencing significant pain relief when he received nitroglycerin he also received aspirin in the emergency room. He had a electrocardiogram on arrival that did not show any obvious acute injury there has not been any subsequent tracing performed. His troponin levels mikey from normal to 8.5 indicating obvious evidence of acute myocardial injury in this setting I am seeing him in consultation this morning. The patient says he remember seeing me over 20 years ago for an outpatient stress test which was normal. Obviously I do not recall that encounter at this time Review of Systems Constitutional: Constitutional: Reports no additional constitutional complaints Eyes: Eyes: Reports no additional eye complaints ENT: Reports system reviewed and no additional complaints, except as documented Cardiovascular: Cardiovascular: Reports as per HPI Respiratory: Respiratory: Reports no additional respiratory complaints Gastrointestinal: Gastrointestinal: Reports no additional gastrointestinal complaints Musculoskeletal: Musculoskeletal: Reports no additional musculoskeletal complaints Integumentary/Breasts: Skin/Breast: Reports system reviewed and no additional complaints, except as docu Neurologic: Reports system reviewed and no additional complaints, except as documented Endocrine: Endocrine: Reports no additional endocrine complaints Hematologic/Lymphatic: Hematologic/Lymphatic: Reports no additional hematologic/lymphatic complaints Allergic/Immunologic: Allergic/Immunologic: Reports no additional allergic/immunologic complaints PMFSH Past Medical History Medical History Diarrhea Diverticulosis Gastro-esophageal reflux disease without esophagitis History of colitis Leukocyto
[2022-02-05] MEDS: SODIUM CHLORIDE 0.9% IV 1,000 ML 75 ML IV CONT (08:16)
[2022-02-05] MEDS: ASPIRIN 81 MG CHEWABLE TABLET PO (08:19)
[2022-02-05] MEDS: PANTOPRAZOLE 40 MG TABLET PO (08:19)
[2022-02-05] MEDS: OPTI-GEN TAB 1 TABLET PO (08:19)
[2022-02-05] MEDS: CYANOCOBALAMIN 1,000 MCG TABLET 1000 MCG PO (08:19)
--- NOTE | 2022-02-05 08:52 | WPDMODSED ---
Moderate Sedation Note-Pt Data Patient Data Diagnosis: Non ST-elevation MS Present Complaint: chest pain Procedure to be performed/Plan: left heart catheterization Allergies Allergy/AdvReac Type Severity Reaction Status Date / Time No Known Allergies Allergy Unknown Verified 02/04/22 16:14 Home Medications Medication Instructions Recorded Confirmed Type cyanocobalamin (vitamin B-12) 1,000 mcg PO DAILY 11/29/19 02/04/22 History 1,000 mcg tablet kyvekshi-vmg-rpohu acid 300 1 tablet PO DAILY 11/29/19 02/04/22 History mcg-lycopene 600 mcg-lutein 300 mcg tablet (Centrum Silver Men) esomeprazole magnesium 40 mg 40 mg PO DAILY #90 caps 06/04/21 02/04/22 Rx capsule,delayed release (Nexium) Current Medications: Active Medications Acetaminophen (Acetaminophen 325 Mg Tablet) 650 mg PO Q4H PRN PRN Reason: Mild Pain (1-3) or Fever Aspirin (Aspirin 81 Mg Chewable Tablet) 81 mg PO DAILY@0800 [facility] Last Admin: 02/05/22 08:19 Dose: 81 mg Cyanocobalamin (Cyanocobalamin 1,000 Mcg Tablet) 1,000 mcg PO DAILY [facility] Last Admin: 02/05/22 08:19 Dose: 1,000 mcg Sodium Chloride (Normal Saline Iv) 1,000 mls @ 75 mls/hr IV CONT .[id number] [facility] Last Admin: 02/05/22 08:16 Dose: 75 mls/hr Morphine Sulfate (Morphine Sulfate (*Crx) 4 Mg/Ml Inj) 4 mg IV PUSH Q2H PRN PRN Reason: Pain Rated 7-10 Multivitamins/Minerals (Opti-Gen Tab) 1 tablet PO DAILY [facility] Last Admin: 02/05/22 08:19 Dose: 1 tablet Nitroglycerin (Nitroglycerin Ointment 1 Inch Dose) 1 inch TRANSDERM Q6HR [facility] Last Admin: 02/05/22 06:00 Dose: 1 inch Nitroglycerin (Nitroglycerin Sl 0.4 Mg Tablet) 0.4 mg SUBLINGUAL Q5MIN PRN PRN Reason: Chest Pain Ondansetron HCl (Ondansetron Inj 4 Mg/2 Ml Vial) 4 mg IV PUSH Q4H PRN PRN Reason: Nausea Pantoprazole Sodium (Pantoprazole 40 Mg Tablet) 40 mg PO QAM [facility] Last Admin: 02/05/22 08:19 Dose: 40 mg Perflutren Lipid Microsphere (Perflutren Lipid Microspheres 1.5 Ml Vial Diluted To 10 Ml Total Volume) 0 ml IV PUSH ONCE PRN; Protocol PRN Reason: adequate visualization Stop: 02/06/22 23:44 Sedation/Anesthesia: No previous sedation/anesthesia problems (including family history). [facility] Past Medical History Medical History Diarrhea Diverticulosis Gastro-esophageal reflux disease without esophagitis History of colitis Leukocytosis Pure hypercholesterolemia Surgical History Surgical History (Updated 02/04/22 @ 23:39 by Doris Andrews NP) H/O colonoscopy Status post laparoscopic cholecystectomy Family History Family History Father Family history of aortic aneurysm Sibling Patient's sister is in good health Sibling Cerebrovascular accident Social History Social History (Updated 02/04/22 @ 23:40 by Doris Andrews NP) Social History: Patient lives at home with , Siri, whom he designates as his surrogate MDM. The patient has 2 children and he is retired from being a taxicab driver . PCP is Dr. Rodriguez. Full Code Years smoked: 12 Smoking status: Never smoker Tobacco type: cigarettes and pipe Second hand tobacco smoke exposure: No Smoking end date: 02/21/99 Alcohol intake: current Drinks per week: 2 Substance use: never Substance use type: does not use Lack of Transportation: No Lack of Food: Never True Current Housing: I Have Housing Concerned About Future Housing: No Difficulty Paying Gas/Electric Bills: No Difficulty Paying for Meds: No Currently Unemployed: No Education: High School Diploma/GED Difficulty w/ Childcare or Family Care: No Gender identity (if verbalized by the patient): Male Spiritual care concerns: No Mod Sed Physical Exam Physical Exam Pre Procedural Exam: Normal: Appearance, Nose, Neck, Throat, Airway, Lungs, Heart Size, Heart Rate, Heart Rhythm, Neuro Exam and Extremities Hours since solid
--- NOTE | 2022-02-05 09:24 | PM.IMPN ---
Progress Note: A&P Assessment and Plan (1) Acute non-ST elevation myocardial infarction (NSTEMI): Code(s): I21.4 - Non-ST elevation (NSTEMI) myocardial infarction Status: Acute Assessment and Plan: Troponin trending up. TSH normal. Planned for cardiac catheterization today. -Appreciate recommendations from Cardiology -Statin -Aspirin -Continue therapeutic enoxaparin for now (2) Gastro-esophageal reflux disease without esophagitis: Code(s): K21.9 - Gastro-esophageal reflux disease without esophagitis Status: Acute Assessment and Plan: Continue with his PPI. Subjective Date/time seen: 02/05/22 09:24 Patient denies chest pain, shortness of breath. Has questions about how he developed heart disease even though he exercises and lives a healthy lifestyle. Review of Systems Cardiovascular: Cardiovascular: Denies chest pain and Denies palpitations Respiratory: Respiratory: Denies dyspnea Exam Narrative: GENERAL: NAD, cooperative HEENT: Normocephalic, atraumatic, anicteric NECK: Supple CV: Normal S1, S2, RRR, No MRG RESP: CTAB, Normal work of breathing. EXTREMITIES: Warm and well perfused, no clubbing, cyanosis, or edema. SKIN: warm, dry and intact. NEURO: CN II-XII grossly intact. Objective Data Vital Signs Vital Signs: Vital Signs - 24 hr 02/04/22 13:21 02/04/22 13:59 02/04/22 14:08 Temperature 36.7 C Pulse Rate 64 63 Respiratory Rate 14 16 Blood Pressure 124/68 132/97 H Pulse Oximetry 100 98 99 Oxygen Delivery Room Air Room Air Room Air Oxygen Flow Rate 02/04/22 14:25 02/04/22 14:11 02/04/22 14:15 Temperature Pulse Rate 68 66 77 Respiratory Rate 19 20 Blood Pressure Pulse Oximetry 97 99 Oxygen Delivery Oxygen Flow Rate 02/04/22 14:30 02/04/22 14:31 02/04/22 14:32 Temperature Pulse Rate 64 67 66 Respiratory Rate 19 22 H 17 Blood Pressure 144/74 H Pulse Oximetry 99 99 100 Oxygen Delivery Oxygen Flow Rate 02/04/22 14:58 02/04/22 15:00 02/04/22 15:01 Temperature Pulse Rate 64 62 66 Respiratory Rate 20 23 H 18 Blood Pressure 132/73 Pulse Oximetry 100 100 97 Oxygen Delivery Oxygen Flow Rate 02/04/22 15:15 02/04/22 15:30 02/04/22 15:46 Temperature Pulse Rate 68 66 71 Respiratory Rate 21 H 19 22 H Blood Pressure Pulse Oximetry 100 99 98 Oxygen Delivery Oxygen Flow Rate 02/04/22 18:00 02/04/22 20:00 02/04/22 20:00 Temperature 36.3 C L Pulse Rate 77 80 78 Respiratory Rate 16 Blood Pressure 129/77 Pulse Oximetry 98 Oxygen Delivery Oxygen Flow Rate 02/04/22 22:00 02/05/22 00:46 02/05/22 02:07 Temperature 36.2 C L Pulse Rate 105 H 66 Respiratory Rate 16 Blood Pressure 106/60 Pulse Oximetry 97 96 Oxygen Delivery Nasal Cannula Oxygen Flow Rate 4 02/05/22 00:00 02/05/22 02:00 02/05/22 04:00 Temperature Pulse Rate 63 64 Respiratory Rate Blood Pressure Pulse Oximetry 96 Oxygen Delivery Nasal Cannula Oxygen Flow Rate 4 02/05/22 04:00 02/05/22 04:00 02/05/22 06:00 Temperature 36.1 C L Pulse Rate 76 81 64 Respiratory Rate 18 Blood Pressure 124/77 Pulse Oximetry 100 Oxygen Delivery Oxygen Flow Rate 02/05/22 08:00 Temperature 37.1 C Pulse Rate 75 Respiratory Rate 16 Blood Pressure 131/76 Pulse Oximetry 100 Oxygen Delivery Oxygen Flow Rate Intake/Output Intake/Output: Intake & Output 02/02/22 02/03/22 02/04/22 02/05/22 23:59 23:59 23:59 23:59 Intake Total 440 1000 Output Total 500 Balance 440 500 Meds/Results Medications: Active Medications Generic Name Dose Route Start Last Admin Trade Name Freq PRN Reason Stop Dose Admin Acetaminophen 650 mg 02/04/22 14:56 Acetaminophen 325 Mg Tablet PO Q4H PRN Mild Pain (1-3) or Fever Aspirin 81 mg 02/05/22 08:00 02/05/22 08:19 Aspirin 81 Mg Chewable Tablet PO 81 mg DAILY@0800 S
--- NOTE | 2022-02-05 09:46 | WPDCARDPROC ---
Cardiac Cath Procedure Note Date of procedure:: 02/05/22 Performing physician:: Favio Montaño MD Indication:: acute coronary syndrome / non ST elevation MT Brief clinical history:: this is a 71-year-old man without previous history of coronary disease who presented to the hospital with unstable chest pain yesterday. His electrocardiogram was benign however he has had a significant troponin rise and in this setting angiography has been recommended. Procedure Procedure performed:: Left ventriculogram coronary angiogram PCI(CHACHA) to the proximal LAD Sedation/Medication given:: fentanyl 50 mg Versed 2 mg case start time 904 a.m. case end time 9:40 a.m. sedation provided by Maritza Hutchinson RN, trained observer Access site:: right femoral artery Estimated blood loss:: 25 cc Procedure note:: patient was brought to the cardiac catheterization lab in the postabsorptive state the right femoral triangle was prepared and draped in the normal fashion. Anesthesia was provided with 1% lidocaine infiltrated locally. Using a modified Seldinger technique the right common femoral artery was punctured and a 5 [place] vascular sheath was placed. After this a left ventriculogram was performed using a 5 [place] angled pigtail catheter. Left ventricular hemodynamics were also documented. Following this the left coronary artery was engaged and injected using a 5 [place] FL4 catheter. The right coronary artery was engaged and injected a 5 [place] JR4 catheter. This angiograms were then reviewed and PCI of the proximal LAD was recommended and carried out as detailed below. Prior to PCI the 5 [place] sheath was exchanged over a guidewire for a 6 [place] sheath. The patient was systemically anticoagulated with a bolus and infusion of Angiomax for the PCI and received 600 mg of clopidogrel and 160 mg of aspirin orally. Following PCI as described below the patient was stable he was having some very mild ischemic chest pain following deployment of the stent. Which was not surprising. He was otherwise stable he left the cytogenetics laboratory manager with the sheath sutured into position and no evidence of groin hematoma. Findings:: Hemodynamics: Central aortic pressure was 120 over 58 left ventricle 120/0 end-diastolic pressure 8 there is no gradient on pullback across the aortic valve. Left ventricle: The LV is normal in size all segments contract appropriately the ejection fraction is vigorous at 70%. The left main coronary artery is widely patent left anterior descending is a large caliber vessel extending down to around the apex the LAD has a very high-grade proximal stenosis of 95% which is at the origin of a medium-sized proximal high diagonal branch. There is also a 99% stenosis at the origin of the septal perforating complex in this vicinity as well. The distal to this the LAD is free of significant disease. The circumflex is a medium caliber vessel giving rise to the marginal branches and a posterior branch the circumflex system has mild luminal irregularities but no significant lesions are seen. The right coronary artery is medium in caliber and free of significant disease. Intervention: The left coronary artery was engaged using a 6 [place] CLS 3.5 guiding catheter. I used a 0.014 [employer] coronary guidewire to wire the LAD easily passing the wire down to the apex. The lesion was pre-dilated using a 3 x 20 mm Reilly balloon and then stented using a 4 x 18 mm Orsiro drug-eluting stent deployed at 12 atmospheres with an excellent angiographic result. The diagonal branch was patent with SWAPNA 3 flow following stent deployment. Conclusion:: 1. Coronary artery disease with right coronary dominant circulation and acute coronary syndrome related to very high-grade proximal LAD stenosis as described above. 2. Successful treatment of high-grade LAD lesion using the large 4 x 18 mm drug-eluting stent described above with a very good dory
--- NOTE | 2022-02-05 10:31 | SUR.PHASEII ---
angiomax d/c at 1020
[2022-02-05] MEDS: SODIUM CHLORIDE 0.9% IV 1,000 ML 125 ML IV CONT (13:17)
--- NOTE | 2022-02-05 13:30 | SUR.PHASEII ---
report called to Brigette imu nurse. patients groin site wnl. education given on bed rest and restrictions. patient and family verbalize understanding
[2022-02-05] MEDS: ROSUVASTATIN 10 MG TABLET 20 MG PO (16:03)
[2022-02-05] MEDS: METOPROLOL TARTRATE 25 MG TABLET PO (20:30)
[2022-02-06] VITALS (8 sets, daily range): BP systolic 124–139; BP diastolic 61–70; PULSE 59–76; RESP 16; TEMP 36.5–36.9; O2SAT 99
[2022-02-06 04:33] LABS: Basophils Percent Auto 0.2 % (0.2-1.2); Eosinophils Absolute Auto 0.1 K/mm3 (0-0.3); Eosinophils Percent Auto 0.8 % (0-4.4); Hematocrit 39.2 % (42.0-52.0); Hemoglobin 13.8 g/dL (14.0-18.0); Immature Granulocyte Absolute 0.04 K/mm3 (0.00-0.031); Immature Granulocyte Percent A 0.5 % (0-0.5); Lymphocytes Absolute Auto 1.32 K/mm3 (0.9-3.2); Lymphocytes Percent Auto 14.9 % (18.3-44.2); Mean Corpuscular HGB Conc 35.2 g/dl (32-36); Mean Corpuscular Hemoglobin 34.5 pg (26-34); Mean Platelet Volume 9.5 fl (7.4-10.4); Monocytes Absolute Auto 0.9 K/mm3 (0.1-0.6); Monocytes Percent Auto 10.1 % (2.6-8.5); Neutrophils Absolute Auto 6.5 K/mm3 (1.3-6.7); Neutrophils Percent Auto 73.5 % (45.5-73.1); Platelet Count Result 151 k/mm3 (150-375); Red Cell Distribution Width 12.2 % (11.5-14.5); White Blood Count 8.9 K/mm3 (4.5-10.0)
[2022-02-06 04:47] LABS: Anion Gap 6 mmol/L (8-16); Blood Urea Nitrogen 12 mg/dL (9-20); Calcium 8.5 mg/dL (8.4-10.2); Carbon Dioxide 28 mmol/L (22-30); Chloride 105 mmol/L (98-107); Estimated CRCL calculation 71 ml/min; Estimated Glomerular Filt Rate > 60; Glucose 102 mg/dL (65-110); Potassium 4.1 mmol/L (3.4-5.0); Sodium 139 mmol/L (137-145)
--- NOTE | 2022-02-06 05:11 | ECG_ITS ---
Measurements Intervals [place] Rate: 68 P: 79 AR: 176 QRS: 37 QRSD: 97 T: 31 QT: 394 QTc: 421 Interpretive Statements SINUS RHYTHM COMPARED TO ECG 02/04/2022 13:16:47 NO SIGNIFICANT CHANGES Electronically Signed On 02-06-2022 8:44:55 [employer] by Calli Mendoza M.D.
[2022-02-06] MEDS: ASPIRIN 81 MG CHEWABLE TABLET PO (09:16)
[2022-02-06] MEDS: PANTOPRAZOLE 40 MG TABLET PO (09:16)
[2022-02-06] MEDS: OPTI-GEN TAB 1 TABLET PO (09:16)
[2022-02-06] MEDS: CYANOCOBALAMIN 1,000 MCG TABLET 1000 MCG PO (09:17)
[2022-02-06] MEDS: METOPROLOL TARTRATE 25 MG TABLET PO (09:17)
[2022-02-06] MEDS: CLOPIDOGREL BISULFATE 75 MG TABLET PO (09:17)
[2022-02-06] MEDS: ROSUVASTATIN 10 MG TABLET 20 MG PO (09:25)
--- NOTE | 2022-02-06 12:11 | PM.IMPN ---
Subjective Date/time seen: 02/06/22 12:11 Objective Data Vital Signs Vital Signs: Vital Signs - 24 hr 02/05/22 12:25 02/05/22 12:35 02/05/22 12:50 Temperature Pulse Rate 67 69 75 Respiratory Rate 11 L 17 18 Blood Pressure 128/71 127/64 128/66 Pulse Oximetry 100 99 100 Oxygen Delivery Room Air Room Air Room Air Oxygen Flow Rate 02/05/22 12:30 02/05/22 12:40 02/05/22 12:45 Temperature Pulse Rate 61 70 72 Respiratory Rate 12 20 14 Blood Pressure 122/69 124/80 121/72 Pulse Oximetry 99 100 99 Oxygen Delivery Room Air Room Air Room Air Oxygen Flow Rate 02/05/22 12:55 02/05/22 13:00 02/05/22 13:17 Temperature Pulse Rate 74 69 65 Respiratory Rate 14 16 16 Blood Pressure 100/53 L 125/73 119/71 Pulse Oximetry 100 100 100 Oxygen Delivery Room Air Room Air Room Air Oxygen Flow Rate 02/05/22 13:30 02/05/22 13:45 02/05/22 13:57 Temperature Pulse Rate 66 65 72 Respiratory Rate 16 16 16 Blood Pressure 122/71 118/70 123/69 Pulse Oximetry 100 100 100 Oxygen Delivery Room Air Room Air Room Air Oxygen Flow Rate 02/05/22 14:00 02/05/22 14:00 02/05/22 15:27 Temperature 36.8 C Pulse Rate 76 73 Respiratory Rate 16 Blood Pressure 120/69 Pulse Oximetry 100 100 Oxygen Delivery Nasal Cannula Oxygen Flow Rate 4 02/05/22 16:00 02/05/22 16:00 02/05/22 18:00 Temperature Pulse Rate 69 78 Respiratory Rate Blood Pressure Pulse Oximetry 100 Oxygen Delivery Nasal Cannula Oxygen Flow Rate 4 02/05/22 20:00 02/05/22 20:30 02/05/22 23:27 Temperature 36.9 C 36.4 C L Pulse Rate 76 81 69 Respiratory Rate 15 16 Blood Pressure 121/60 123/70 Pulse Oximetry 100 98 Oxygen Delivery Oxygen Flow Rate 02/05/22 20:00 02/06/22 00:00 02/05/22 20:00 Temperature Pulse Rate 90 Respiratory Rate Blood Pressure Pulse Oximetry Oxygen Delivery Room Air Room Air Oxygen Flow Rate 02/05/22 22:00 02/06/22 00:00 02/06/22 02:00 Temperature Pulse Rate 78 62 68 Respiratory Rate Blood Pressure Pulse Oximetry Oxygen Delivery Oxygen Flow Rate 02/06/22 04:00 02/06/22 04:00 02/06/22 04:00 Temperature 36.5 C Pulse Rate 62 64 Respiratory Rate 16 Blood Pressure 124/61 Pulse Oximetry 99 Oxygen Delivery Room Air Oxygen Flow Rate 02/06/22 05:47 02/06/22 08:00 02/06/22 08:00 Temperature 36.6 C Pulse Rate 63 72 Respiratory Rate 16 Blood Pressure 139/70 Pulse Oximetry 99 Oxygen Delivery Room Air Oxygen Flow Rate 02/06/22 08:00 02/06/22 10:00 Temperature Pulse Rate 76 59 L Respiratory Rate Blood Pressure Pulse Oximetry Oxygen Delivery Oxygen Flow Rate Intake/Output Intake/Output: Intake & Output 02/03/22 02/04/22 02/05/22 02/06/22 23:59 23:59 23:59 23:59 Intake Total 440 2480 1240 Output Total 1450 Balance 440 1030 1240 Meds/Results Medications: Active Medications Generic Name Dose Route Start Last Admin Trade Name Freq PRN Reason Stop Dose Admin Acetaminophen 650 mg 02/04/22 14:56 Acetaminophen 325 Mg Tablet PO Q4H PRN Mild Pain (1-3) or Fever Aspirin 81 mg 02/05/22 08:00 02/06/22 09:16 Aspirin 81 Mg Chewable Tablet PO 81 mg DAILY@0800 JUWAN Administration Clopidogrel Bisulfate 75 mg 02/06/22 09:00 02/06/22 09:17 Clopidogrel Bisulfate 75 Mg Tablet PO 75 mg DAILY JUWAN Administration Cyanocobalamin 1,000 mcg 02/05/22 09:00 02/06/22 09:17 Cyanocobalamin 1,000 Mcg Tablet PO 1,000 mcg DAILY JUWAN Administration Sodium Chloride 1,000 mls @ 75 mls/hr 02/04/22 15:00 02/06/22 04:45 Normal Saline Iv IV CONT 75 mls/hr .[id number] JUWAN Infusion Metoprolol Tartrate 25 mg 02/05/22 09:45 02/06/22 09:17 Metoprolol Tartrate 25 Mg Tablet PO 25 mg Q12HR JUWAN Administration Morphine Sulfate 4 mg 02/04/22 14:56 Morphine Sulfate (*Crx) 4 Mg/Ml Inj IV PUSH Q2H PRN Pain Rated 7-10
--- NOTE | 2022-02-06 14:26 | PM.DS ---
DS: Admitting Diagnosis Discharge Date 02/06/2022 Admitting Diagnosis Chest pain DS: Discharge Diagnosis Discharge Diagnosis (1) Acute non-ST elevation myocardial infarction (NSTEMI): Code(s): I21.4 - Non-ST elevation (NSTEMI) myocardial infarction Status: Acute (2) Gastro-esophageal reflux disease without esophagitis: Code(s): K21.9 - Gastro-esophageal reflux disease without esophagitis Status: Acute DS: Summary Hospital Course Reason for hospitalization: Chest pain Hospital Course: 71 years old male was admitted with complaint of chest pain in the hospital. Cardiology were consulted, cardiac catheterization stone and drug-eluting stent was placed in LAD. Today patient is feeling better patient has no chest pain. Patient was discharged home stable condition. Follow-up with Cardiology scheduled Status at Discharge Cognitive/behavioral status at discharge: Stable Time Spent with Patient Time attestation: Total time spent providing and/or coordinating discharge services: DS: Data Data Completed and Pending Labs on day of discharge: Labs from last 24 hours 02/06/22 02/06/22 04:05 04:05 WBC 8.9 RBC 4.00 L Hgb 13.8 L Hct 39.2 L MCV 98.0 MCH 34.5 H MCHC 35.2 RDW 12.2 Plt Count 151 MPV 9.5 Immature Gran % (Auto) 0.5 Neut % (Auto) 73.5 H Lymph % (Auto) 14.9 L [place] % (Auto) 10.1 H Eos % (Auto) 0.8 Baso % (Auto) 0.2 Lymph # (Auto) 1.32 [place] # (Auto) 0.9 H Eos # (Auto) 0.1 Baso # (Auto) 0.0 Abs Immat Gran (auto) 0.04 H Absolute Neuts (auto) 6.5 Absolute Nucleated RBC 0.0 Nucleated RBC % 0.0 Sodium 139 Potassium 4.1 Chloride 105 Carbon Dioxide 28 Anion Gap 6 L BUN 12 Creatinine 0.90 Estim Creat Clear Calc 71 Estimated GFR > 60 Glucose 102 Calcium 8.5 Discharge Plan Discharge Attending physician on discharge: Jose Angel Bello Consulting providers: Blanca Gerber Discharging Clinician: Jose Angel Bello Patient Disposition: Home, Self-Care Activity: as tolerated Diet: heart healthy Patient Instructions: Antibiotic Form, Metoprolol (By mouth), Clopidogrel (By mouth), Rosuvastatin (By mouth), Heart Healthy Diet (GEN), Acute Coronary Syndrome (GEN) Stand Alone Forms: General Discharge Information Follow-up/Referrals: Carlos Rodriguez MD [Primary Care Provider] - Discharge Medications: New aspirin [Children's Aspirin] 81 mg Tablet,Chewable 81 mg PO DAILY@0800 Qty: 100 3RF clopidogrel 75 mg Tablet 75 mg PO DAILY Qty: 90 3RF nitroglycerin [Nitrostat] 0.4 mg Tablet, Sublingual 0.4 mg sublingual Q5MIN PRN (Reason: Chest Pain) Qty: 25 0RF metoprolol succinate 50 mg tablet extended release 24 hr 50 mg PO DAILY Qty: 90 0RF pantoprazole [Protonix] 20 mg tablet,delayed release (DR/EC) 20 mg PO HS Qty: 90 0RF rosuvastatin [Crestor] 10 mg Tablet 20 mg PO DAILY Qty: 90 0RF Continued cyanocobalamin (vitamin B-12) 1,000 mcg Tablet 1,000 mcg PO DAILY Centrum Silver Men 300-600-300 mcg Tablet 1 tablet PO DAILY No Action esomeprazole magnesium [Nexium] 40 mg capsule,delayed release(DR/EC) 40 mg PO DAILY Qty: 90 2RF Date of admission: 02/04/22 14:56 Primary Care Provider: Carlos Rodriguez Admitting Provider: Mitesh Fontaine Attending physician on admission: Mitesh Fontaine Condition: Stable Quality VTE Prophylaxis VTE prophylaxis: pharmacologic ordered
--- NOTE | 2022-02-06 14:28 | PM.PNCARD ---
Progress Note: A&P Assessment and Plan (1) Acute non-ST elevation myocardial infarction (NSTEMI): Code(s): I21.4 - Non-ST elevation (NSTEMI) myocardial infarction Status: Acute Assessment and Plan: Patient admitted with a non-STEMI, acute coronary syndrome. Had a drug-eluting stent placed to the proximal Left anterior descending yesterday by Dr. Montaño. Some residual chest discomfort yesterday which is not surprising in view of the septal involvement. Today has had no further chest discomfort. Counseled patient and family extensively about CAD and [place], stress reduction, heart healthy diet, activity, follow-up, medications, when to call, etc. All questions answered to their satisfaction. Will follow-up in our office in the next 1-2 weeks. Hopefully will get into cardiac rehab Continue guideline directed medical therapy with aspirin, Plavix, beta-bryanna, statin. Sublingual nitro p.r.n. Okay for discharge Subjective Date/time seen: Patient was admitted with a non-STEMI, peak troponin up to 8. EKG was surprisingly unremarkable. Cardiac catheterization yesterday by Dr. Montaño showed a 95% stenosis of the proximal Left anterior descending at the origin of a diagonal branch, and a 99% stenosis of the septal perforating branch in this area. The remaining vessels were free of significant disease. The patient had good LV function, EF 70%. He was treated with a 4 mm x 18 mm drug-eluting Orisiro stent. He has some discomfort after which which Dr. Montaño felt was not surprising in view of the large size of this vessel requiring a large stent, and the disease in the septal perforating branch. 02/06/22 14:28 had some more chest discomfort yesterday evening when his roommate was in a lot of pain and requiring a lot of care. Has been up and about in his room with no problems today, no chest discomfort, dizziness, bleeding or lightheadedness. Eager for discharge. Multiple questions about how this could happen to him since he has been so healthy and exercises regularly. He does admit to a poor diet, and does some stress eating, for example eating too much chocolate all at once, eating out a lot, enjoying some high fat foods of snack foods. Admits to a lot of stress at home recently. and son at the bedside and also had in many questions which were answered to their satisfaction. Telemetry: Infrequent PVCs, one 4 beat run of ventricular tachycardia last night Review of Systems Review of Systems: No chest discomfort today up in about in his room, no breathing problems, dizziness, groin pain, abdominal discomfort. Exam Const: General: cooperative, healthy appearing and comfortable; No confusion Orientation/consciousness: oriented to person, patient oriented x3 and No confusion HENMT: Mouth: Yes moist mucous membranes Eyes: EOM: EOMs intact bilaterally Neck: Neck: supple Resp: Effort & Inspection: normal respiratory effort Auscultation: clear to auscultation bilaterally Cardio: Rate: regular rate Rhythm: regular rhythm Heart sounds: no murmurs Other: Cardiac catheterization site in the right femoral area has some very mild bruising but no hematoma, soft and nontender. Pedal pulses are intact. GI: Inspection: normal to inspection GI Palp: No abdominal tenderness Skin: General skin exam: normal color and no rashes or lesions noted Neuro: General: oriented to person, patient oriented x3 and No confusion Extrem: Right lower extremity: no edema Left lower extremity: no edema Psych: Appearance: grossly normal Mental Status: mental status grossly normal Objective Data Vital Signs Vital Signs: Vital Signs - 24 hr 02/05/22 15:27 02/05/22 16:00 02/05/22 16:00 Temperature 98.3 F Pulse Rate 73 69 Respiratory Rate 16 Blood Pressure 120/69 Pulse Oximetry 100 100 Oxygen Delivery Nasal Cannula Oxygen Flow Rate 4 02/05/22 18:00 02/05/22 20:00 02/05/22 20:30 Temperature 98.
== END 2022-02-06 15:24 | disposition home or self-care (01) | DRG 247 ==
LOC: ANHED 15:09 → ANHIMU 15:51
PROVIDERS: Emergency Medicine; Family Medicine; Nurse Practitioner; Specialist; Admitting Provider Internal Medicine; Emergency Provider Family Medicine; PCP Family Medicine; Visit Provider Internal Medicine
PROC: 4A023N7 Measurement of Cardiac Sampling and Pressure, Left Heart, Percutaneous Approach (ICD-10-PCS; CPT 93452; principal; 2022-02-05 09:00)
PROC: 027034Z Dilation of Coronary Artery, One Artery with Drug-eluting Intraluminal Device, Percutaneous Approach (ICD-10-PCS; 2022-02-05 09:00)
DX: I21.4 Non-ST elevation (NSTEMI) myocardial infarction (principal); I25.10 Atherosclerotic heart disease of native coronary artery without angina pectoris; E78.00 Pure hypercholesterolemia, unspecified; K21.9 Gastro-esophageal reflux disease without esophagitis; K57.30 Diverticulosis of large intestine without perforation or abscess without bleeding; Z87.891 Personal history of nicotine dependence; Z20.822 Contact with and (suspected) exposure to COVID-19
CPT/HCPCS: 36415; 71046; 80048; 80053; 80061; 83690; 84443; 84484; 85025; 85610; 85730; 87636; 93005; 93458; 99291; A9270; C1725; C1769; C1874; C1887; C1894; C9600; J0583; J1644; J1650; J2250; J3010; J7030; J7040

== ENCOUNTER 2024-03-27 10:15 | Outpatient (CLI) | payer MEDICARE, SELFPAY ==
--- NOTE | 2024-03-27 10:30 | ECG_ITS ---
Test Date: 2024-03-27 10:42:33 Measurements Intervals [place] Rate: 57 P: 78 TX: 193 QRS: 59 QRSD: 132 T: 43 QT: 426 QTc: 418 Interpretive Statements SINUS BRADYCARDIA RIGHT BUNDLE BRANCH BLOCK BASELINE ARTIFACT- I, II, III, AVR, AVL, AVF, V1 ABNORMAL ECG No previous ECG available for comparison Electronically Signed On 03-27-2024 10:56:58 SOFT WORK WRAPPER EXAMINER by Benny Hare D.O.
--- OUTSIDE RECORDS SUMMARY | 2024-03-27 10:48 | XMS_ITS | Referral Summary ---
Author Organization [facility] [address] [facility] [address] Address [address] [place] [address] Care Team Providers Care Video Game Repair Technician Name Role Phone Carlos Rodriguez MD Primary Care Provider Encounters Date Type Department Care Team Description 01/06/2024 Orders Only [facility] Medical Group Cardiology [address] [place] [address] ProviderKatherine MD 01/06/2024 2:30 PM SENIOR AUDIT MANAGER Office Visit [facility] Medical [facility] Cardiology [address] [place] [address] [address] [place] [address] Favio Montaño MD History of coronary artery stent placement (Primary Dx) from Last 3 Months Allergies No known active allergies Medications pantoprazole DR (PROTONIX) 20 mg EC tablet Take 2 tablets (40 mg total) by mouth daily at bedtime. 2 Active cyanocobalamin (Vitamin B-12) 1,000 mcg tabletIndicati ons:Prevention of Vitamin B12 Deficiency Take 1 tablet (1,000 mcg total) by mouth daily Active venpovqj-fqh-Z H-ebnvxam-ocip in 300-600-300 mcg tablet Take 1 tablet by mouth daily Active nitroglycerin (NITROSTAT) 0.[address] 1 TABLET UNDER THE TONGUE EVERY 5 MINUTES FOR 3 DOSES NEEDED FOR CHEST PAIN 25 tablet 11 3 Active rosuvastatin (CRESTOR) 20 mg tablet Take 1 tablet (20 mg total) by mouth daily 90 tablet 3 4 Active metoprolol XL (TOPROL-XL) 50 mg extended release tablet TAKE 1 TABLET(50 MG) BY MOUTH DAILY 90 tablet 2 5 Active aspirin 81 mg chewable tablet CHEW AND SWALLOW 1 TABLET BY MOUTH DAILY AT 8 AM 90 tablet 1 5 Active aspirin 81 mg chewable tablet CHEW AND SWALLOW 1 TABLET BY MOUTH DAILY AT 8 AM 90 tablet 1 4 03/21/19 25 Discontinued metoprolol XL (TOPROL-XL) 50 mg extended release tablet Take 1 tablet (50 mg total) by mouth daily 90 tablet 1 4 03/20/19 25 Discontinued Active Problems Problem Noted Date Diagnosed Date History of coronary artery stent placement 05/27 Social History Tobacco Use Types Packs/Day Years Used Date Smoking Tobacco: Never Smokeless Tobacco: Never Tobacco Cessation:Counseling Given: Not Answered AUDIT-C Answer Date Recorded Q1: How often do you have a drink containing alcohol? Monthly or less 02/25/2022 Q2: How many drinks containi ng alcohol do you have on a typical day when you are drinking? Patient does not drink Q3: How often do you have si x or more drinks on one occasion? Never 02/25/2022 Sex and Gender Information Value Date Recorded Sex Assigned at Not on file Legal Sex Male 7:52 PM SENIOR AUDIT MANAGER Gender Identity Not on file Sexual Orientation Not on file Last Filed Vital Signs Vital Sign Reading Time Taken Comments Blood Pressure 142/84 01/06/2024 2:31 PM SENIOR AUDIT MANAGER Pulse 60 01/06/2024 2:31 PM SENIOR AUDIT MANAGER Temperature - - Respiratory Rate - - Oxygen Saturation 98% 01/06/2024 2:31 PM SENIOR AUDIT MANAGER Inhaled Oxygen Concentration - - Weight 85.3 kg (188 lb) 01/06/2024 2:31 PM SENIOR AUDIT MANAGER Height 177.8 cm (5' 10 ) 01/06/2024 2:31 PM SENIOR AUDIT MANAGER Body Mass Index 26.98 01/06/2024 2:31 PM SENIOR AUDIT MANAGER Plan of Treatment Not on file Insurance MEDICARE [employer] MEDICARE TRUST MEDICARE [employer] MED[employer]ARE [employer]UST Care Teams Video Game Repair Technician Relationship Specialty Start Date End Date Carlos Rodriguez MD [address] [place] [address] PCP - General Family Medicine 02/25/22
--- OUTSIDE RECORDS SUMMARY | 2024-03-27 10:48 | XMS_ITS | Clinical Summary ---
Author Organization [facility] [address] [place] [address] Care Team Providers Care Supervisor Fish Processing Name Role Phone Carlos Rodriguez MD Primary Care Provider Allergies No known active allergies Medications pantoprazole DR (PROTONIX) 20 mg EC tablet Take 2 tablets (40 mg total) by mouth daily at bedtime. 2 Active cyanocobalamin (Vitamin B-12) 1,000 mcg tabletIndicati ons:Prevention of Vitamin B12 Deficiency Take 1 tablet (1,000 mcg total) by mouth daily Active wjgwasuy-bqc-A M-treugsp-ectm in 300-600-300 mcg tablet Take 1 tablet [...] History of coronary artery stent placement 05/27 Encounters Date Type Department Care Team Description 01/06/2024 2:30 PM WELT POCKET MACHINE OPERATOR Office Visit [facility] Medical [facility] Cardiology [address] [facility] [address] [place] [phone] Favio Montaño MD History of coronary artery stent placement (Primary Dx) 01/06/2024 Orders Only [facility] Medical [facility] Cardiology [address] [facility] [address] [place] [address] Provider, MD Katherine from Last 3 Months Surgical History Surgery Date Site/Laterality Comments GALLBLADDER SURGERY CORONARY ANGIOPLASTY WITH STENT PLACEMENT 02/05/2022 Medical History Medical History Date Comments Dizziness Cataracts, both eyes Coronary artery disease 02/04/2022 GERD (gastroesophageal reflux disease) Family History Medical History Relation Name Comments Heart attack Mother Relation Name Status Comments Father Mother Sister 1 Alive Sister 2 Alive Sister 3 Alive Social History Tobacco Use Types Packs/Day Years [...] on file Legal Sex Male 7:52 PM WELT POCKET MACHINE OPERATOR Gender Identity Not on file Sexual Orientation Not on file Obstetrics History Last Filed Vital Signs Vital Sign Reading Time Taken Comments Blood Pressure 142/84 01/06/2024 2:31 PM WELT POCKET MACHINE OPERATOR Pulse 60 01/06/2024 2:31 PM WELT POCKET MACHINE OPERATOR Temperature - - Respiratory Rate - - Oxygen Saturation 98% 01/06/2024 2:31 PM WELT POCKET MACHINE OPERATOR Inhaled Oxygen Concentration - - Weight 85.3 kg (188 lb) 01/06/2024 2:31 PM WELT POCKET MACHINE OPERATOR Height 177.8 cm (5' 10 ) 01/06/2024 2:31 PM WELT POCKET MACHINE OPERATOR Body Mass Index 26.98 01/06/2024 2:31 PM WELT POCKET MACHINE OPERATOR Plan of Treatment Health Maintenance Due Date Last Done Comments Colon Cancer Screening-Colonoscopy 1950 Depression Screening 1950 Fall Risk Assessment 1950 Hepatitis C Screening 1950 DTaP/Tdap/Td Vaccine (1 - Tdap) 04/28/1962 Hepatitis B Screening 04/28/1969 Zoster Vaccine (1 of 2) 04/28/2001 Pneumococcal vaccine 65+ (1 of 1 - PCV) 04/28/2016 Well Visit 65+ 04/28/2016 Influenza Vaccine (#1) 2023 Insurance MEDICARE [employer] [place] [phone] [employer] Care Teams Supervisor Fish Processing Relationship Specialty Start Date End Date Carlos Rodriguez MD [address] [facility] [address] [place] [address] PCP - General Family Medicine 02/25/22
== END 2024-03-27 10:16 | disposition home or self-care (01) ==
LOC: ANHSURGERY 10:22
PROVIDERS: PCP Family Medicine; Visit Provider Surgery
DX: Z01.818 Encounter for other preprocedural examination (principal); E78.00 Pure hypercholesterolemia, unspecified; K40.90 Unilateral inguinal hernia, without obstruction or gangrene, not specified as recurrent
CPT/HCPCS: 36415; 86850; 86900; 86901; 93005

== ENCOUNTER 2024-04-03 00:21 | Day surgery (SDC) | payer MEDICARE, SELFPAY ==
--- NOTE | 2024-03-22 14:54 | PC.NURSE ---
Report to the Outpatient Waiting Room, entrance under the green pavilion located off [facility], at time _10 AM on date __04/03/24 . Planned Procedure Time: __1200 NOON .? Time changes happen often and if your time is changed the preop area will call you the afternoon before. - You and your visitor will be asked to self-screen and do not enter if you have any COVID symptoms. Please call surgeon( 9 AM) if you need to reschedule. - A mask is optional within the hospital at this time. Patients may have clear liquids (water, carbonated beverages, clear teas, apple juice) until 3 hours prior to surgery with a maximum of 20 ounces. - No food from midnight until time of surgery and no smoking. This includes no chewing gum, candy or mints. Take only the following medications with a SIP of water on the morning of surgery: _METOPROLOL MAY CONTINUE 81 MG ASPIRIN,BUT DO NOT TAKE MORNING OF SURGERY DO NOT STOP ANY OF YOUR OTHER PRESCRIPTION MEDICATIONS PRIOR TO SURGERY EXCEPT THE FOLLOWING Medications to discontinue per physician NONE Please no make-up, nail serbian, hairspray, perfume, deodorant, or body powder the day of surgery.? No jewelry (including any body piercings) or valuables the day of surgery, leave them at home.? Please take a shower or bath the night before, or the morning of, surgery with an antibacterial soap.? Wear comfortable, loose fitting clothing.? Children are encouraged to wear pajamas. - Jewelry must be removed prior to entering the operating room.? Rings and piercings that are not removed may be cut off. - The hospital will not accept responsibility for valuables.? - Please leave all valuables, including medications, at home the day of surgery. If you are going home after surgery, a licensed cdl dedicated truck driver must drive you home.? - NO public transportation without another adult if you receive anesthesia. - We recommend that an adult stay with you for 24 hours following discharge. - We also recommend that you do not drive, make important decision, drink alcoholic beverages, or take any drugs that were not prescribed by your health care provider for at least 24 hours after your discharge time. Hold all vitamins and supplements for 3 days per anesthesiologist.LAST DOS03/30/24 Follow any additional instructions given to you from your surgeon. Telephone instructions given to _PATIENT and asked if any additional questions and then verbalized understanding. Patient advised to call surgeon office or pre surgery nurse liaison [phone] if any additional questions.
[2024-03-22 15:12] VITALS: BMI 25.8
[2024-04-03] VITALS (12 sets, daily range): BP systolic 100–146; BP diastolic 57–84; PULSE 55–84; RESP 12–18; TEMP 36.4–36.6; O2SAT 100; BMI 25.4
--- OUTSIDE RECORDS SUMMARY | 2024-04-03 00:24 | XMS_ITS | Clinical Summary ---
Author Organization [facility] [address] [place] [address] Care Team Providers Care Nursing Home Physician Name Role Phone Carlos Rodriguez MD Primary Care Provider Allergies No known active allergies Medications pantoprazole DR (PROTONIX) 20 mg EC tablet Take 2 tablets (40 mg total) by mouth daily at bedtime. 2 Active cyanocobalamin (Vitamin B-12) 1,000 mcg tabletIndicati ons:Prevention of Vitamin B12 Deficiency Take 1 tablet (1,000 mcg total) by mouth daily Active sawwsjfw-ovw-F O-sjgdhkx-xomb in 300-600-300 mcg tablet Take 1 tablet [...] Department Care Team Description 01/06/2024 2:30 PM GUN TESTER Office Visit [facility] Medical [facility] Cardiology [address] [facility] [address] [place] [phone] Favio Montaño MD History of coronary artery stent placement (Primary Dx) 01/06/[address] [facility] Medical [facility] Cardiology [address] [facility] [address] [place] [address] Provider, MD Katherine from Last 3 Months [...] on file Legal Sex Male 7:52 PM GUN TESTER Gender Identity Not on file Sexual Orientation Not on file Obstetrics History Last Filed Vital Signs Vital Sign Reading Time Taken Comments Blood Pressure 142/84 01/06/2024 2:31 PM GUN TESTER Pulse 60 01/06/2024 2:31 PM GUN TESTER Temperature - - Respiratory Rate - - Oxygen Saturation 98% 01/06/2024 2:31 PM GUN TESTER Inhaled Oxygen Concentration - - Weight 85.3 kg (188 lb) 01/06/2024 2:31 PM GUN TESTER Height 177.8 cm (5' 10 ) 01/06/2024 2:31 PM GUN TESTER Body Mass Index 26.98 01/06/2024 2:31 PM GUN TESTER Plan of Treatment Health Maintenance Due Date [...] Insurance MEDICARE [employer] [phone] [employer] Care Teams Nursing Home Physician Relationship Specialty Start Date End Date Carlos Rodriguez MD [address] [facility] [address] [place] [address] PCP - General Family Medicine 02/25/22
--- OUTSIDE RECORDS SUMMARY | 2024-04-03 00:24 | XMS_ITS | Referral Summary ---
Author Organization [facility] [address] [facility] [address] Address [address] [place] [address] Care Team Providers Care Speech And Language Assistant Name Role Phone Carlos Rodriguez MD Primary Care Provider Encounters Date Type Department Care Team Description 01/06/2024 Orders Only [facility] Medical Group Cardiology [address] [place] [address] ProviderKatherine MD 01/06/2024 2:30 PM CHIEF ENGINEER'S HELPER Office Visit [facility] Medical [facility] Cardiology [address] [place] [address] [address] [place] [address] Favio Montaño MD History of [...] (1,000 mcg total) by mouth daily Active foqzwfkg-kqu-F Z-ptnfjqa-mswx in 300-600-300 mcg tablet Take 1 tablet [...] on file Legal Sex Male 7:52 PM CHIEF ENGINEER'S HELPER Gender Identity Not on file Sexual Orientation Not on file Last Filed Vital Signs Vital Sign Reading Time Taken Comments Blood Pressure 142/84 01/06/2024 2:31 PM CHIEF ENGINEER'S HELPER Pulse 60 01/06/2024 2:31 PM CHIEF ENGINEER'S HELPER Temperature - - Respiratory Rate - - Oxygen Saturation 98% 01/06/2024 2:31 PM CHIEF ENGINEER'S HELPER Inhaled Oxygen Concentration - - Weight 85.3 kg (188 lb) 01/06/2024 2:31 PM CHIEF ENGINEER'S HELPER Height 177.8 cm (5' 10 ) 01/06/2024 2:31 PM CHIEF ENGINEER'S HELPER Body Mass Index 26.98 01/06/2024 2:31 PM CHIEF ENGINEER'S HELPER Plan of Treatment Not on file Insurance MEDICARE [employer] MEDICARE TRUST MEDICARE [employer]ARE TRUST Care Teams Speech And Language Assistant Relationship Specialty Start Date End Date Carlos Rodriguez MD [address] [place] [address] PCP - General Family Medicine 02/25/22
[2024-04-03] MEDS: ACETAMINOPHEN 500 MG TABLET 1000 MG PO (10:57)
[2024-04-03] MEDS: KETOROLAC 15 MG/ML VIAL (*BKC) IV PUSH (10:57)
--- NOTE | 2024-04-03 11:32 | WPDHPUPDATE1 ---
History and Physical Update Update Date/Time: 04/03/24 11:32 History and Physical has been reviewed, including an updated exam of the patient. There are NO changes in the patient's condition. Risks, benefits, and alternatives have been discussed and questions answered. Patient agrees to proceed with procedure.
--- NOTE | 2024-04-03 11:47 | P.PNAN_ITS ---
Anes - Initial Pre Proc Eval Procedure: Operation Date: 04/03/24 12:00 Proposed Procedures p Laparoscopic Right Inguinal Hernia Repair with Mesh Davinci Assisted - Luis Angel De La Garza DO Date/Time: 04/03/24 11:47 Surgeon: Luis Angel De La Garza DO Pre Op Diagnosis: Right Ing Hernia Patient Data Age: 73 Gender: M Height: 1.8 m Weight: 83.95 kg Allergies Allergy/AdvReac Type Severity Reaction Status Date / Time No Known Allergies Allergy Unknown Verified 03/22/24 14:55 Home Medications ?Medication ?Instructions ?Recorded ?Confirmed ?Type qpyhjbrb-gn-xkhgx 300 mcg-K 60 1 tablet PO DAILY 11/29/19 03/22/24 History mcg-lycop 600 mcg-lutein 300 mcg tablet (Centrum Silver Men) aspirin 81 mg chewable tablet 81 mg PO DAILY@0800 #100 tabs 02/06/22 03/22/24 Rx (Children's Aspirin) metoprolol succinate 50 mg 50 mg PO DAILY #90 tabs 02/06/22 03/22/24 Rx tablet,extended release 24 hr nitroglycerin 0.4 mg sublingual 0.4 mg sublingual Q5MIN PRN Chest 02/06/22 03/22/24 Rx tablet (Nitrostat) Pain #25 tabs rosuvastatin 10 mg tablet (Crestor) 20 mg (2 x 10 mg) PO DAILY #90 tabs 02/06/22 03/22/24 Rx pantoprazole 40 mg tablet,delayed 40 mg PO HS #30 tabs 03/21/24 03/22/24 Rx release cyanocobalamin (vitamin B-12) 1,000 mcg PO DAILY 03/22/24 03/22/24 History 1,000 mcg capsule potassium 99 mg tablet 99 mg PO DAILY 03/22/24 03/22/24 History Patient hx anesthesia problems: none Family hx anesthesia problems: none Results Review: All pre-operative results and documents have been reviewed as part of the pre- operative evaluation. [facility] Past Medical History Medical History Old CO (myocardial infarction) CAD (coronary artery disease) Leukocytosis Diarrhea Diverticulosis History of colitis Gastro-esophageal reflux disease without esophagitis Pure hypercholesterolemia Surgical History Surgical History Status post insertion of drug eluting coronary artery stent 2021 H/O colonoscopy Status post laparoscopic cholecystectomy Family History Family History Father Family history of aortic aneurysm Sibling Patient's sister is in good health Sibling Cerebrovascular accident Social History Social History Social History: Patient lives at home with , Siri, whom he designates as his surrogate MDM. The patient has 2 children and he is retired from being a local company flatbed truck driver . PCP is Dr. Rodriguez. Full Code Years smoked: 12 Smoking status: Never smoker Tobacco type: cigarettes Second hand tobacco smoke exposure: No Smoking end date: 02/21/99 Alcohol intake: current Drinks per week: 7 Alcohol use details: BEER Substance use: never Substance use type: does not use Lack of Transportation: No Lack of Food: Never True Current Housing: I Have Housing Concerned About Future Housing: No Difficulty Paying Gas/Electric Bills: No Difficulty Paying for Meds: No Currently Unemployed: No Education: High School Diploma/GED Difficulty w/ Childcare or Family Care: No Living arrangements: with family Occupation/Education: retired Gender identity (if verbalized by the patient): Male Spiritual care concerns: No Anes - Eval Final PreProcedure Day of Procedure 04/03/24 11:47 Patient weight: overweight Lungs: normal air movement Airway: Mallampati scale and special considerations (Missing R lower tooth, post aspect. ) Neurological: alert and oriented Last oral intake: >/= 8 hours ASA classification: III Emergent: no Anesthetic plan: proceed Anesthesia type and monitoring: general ETT and standard monitoring Results Review: All pre-operative results and documents have been reviewed as part of the pre- operative evaluation. HTN, hyperlipidemia, s/p PTCA approx 2021 with no cp or sob, since, pt doing excellent w his functional status. Informed Consent: The patient's anesthetic plan and its attendant risks and benefits were discussed with the patient/family/POA. Questions were solicited and answers provided to the satisfaction of the patient/family/POA.
[2024-04-03] MEDS: ceFAZolin 2 GM/D5W 50 ML 2 GM/50 ML BAG IVPB (12:10)
[2024-04-03] MEDS: BUPIVACAINE/EPINEPHRINE 0.5% 50 ML VIAL 30 ML INFILTRATE (12:52)
[2024-04-03] MEDS: LACTATED RINGERS 1,000 ML 30 ML IV CONT ×3 (13:42→16:01)
--- NOTE | 2024-04-03 13:44 | W.PM.PROC2 ---
Procedure Note - Detailed Date of Procedure 04/03/24 Pre-op Diagnosis Right inguinal hernia Post-op Diagnosis Other (Bilateral inguinal hernia) Procedure Performed Laparoscopic bilateral inguinal hernia repair with mesh, da Nemesio assisted Surgeon Luis Angel De La Garza DO Anesthesia General and Local (0.5% bupivacaine with epinephrine) Indications This is a 73-year-old man who presented with a right groin bulge. He had noticed this many years ago, but it had gradually increased in size over time. He was found to have a reducible right inguinal hernia on exam. There was no definite evidence of a left inguinal hernia. Discussions were made with the patient about treatment options and decision was made to proceed with robotic assisted laparoscopic right inguinal hernia repair with mesh. Findings Upon inspecting the abdomen laparoscopically, the patient was found to have bilateral inguinal hernias. He was noted to have a large direct right inguinal hernia and a medium-sized indirect left inguinal hernia. Decision was made to repair both hernias. A robotic transabdominal preperitoneal approach was used for repair. Large 3DMax mid mesh was placed overlying each myopectineal orifice. No specimens were obtained for pathology. Description of Procedure Procedure as well as risks, benefits, and alternatives were discussed with the patient. Written consent was obtained and placed in chart prior to procedure. Patient was brought back to surgical suite. He was placed supine on operating table. Time-out was done to confirm patient and procedure. He was then intubated by Anesthesia Department. His abdomen was prepped and draped in sterile fashion using chlorhexidine prep. 0.5% bupivacaine with epinephrine was infiltrated at each location for incision. An 8 mm incision was made in the left lateral abdomen, and a 5 mm Optiview trocar was advanced through the abdominal layers under direct visualization. Once inside the abdominal cavity, carbon dioxide insufflation was used to create a pneumoperitoneum. A camera was inserted and the abdominal cavity was inspected. The patient was placed in slight Trendelenburg position. An 8 millimeter incision was made on the right lateral abdomen and an 8 millimeter trocar was inserted under direct visualization. Another 8 millimeter incision was made just superior to the umbilicus and an 8 millimeter trocar was inserted under direct visualization. The 5 mm port was then removed and this was replaced with another 8 mm robotic port. The robotic arms were brought up to the patient's bedside and secured to the ports. The camera and instruments were inserted. I then moved over to the robotic console and took control of the camera and instruments. After careful inspection of the abdominal cavity, I began scoring the peritoneum along the right lower quadrant using scissors with electrocautery. The preperitoneal plane was entered and this was carefully dissected caudally along the inferior epigastric vessels. Careful dissection with scissors with electrocautery and blunt dissection was used to continue this dissection. I dissected far enough laterally to allow for mesh placement, and also dissected medially to identify the pubic arch and Bradley's ligament. The hernia sac was identified and carefully dissected posteriorly. The cord contents were also identified and the peritoneum was carefully dissected far enough posteriorly to allow for mesh placement. Once an adequate pocket was created, I then placed the mesh within the preperitoneal pocket and carefully unfolded it. The mesh was centered on the hernia defect with adequate overlap circumferentially. The inferior edge of the mesh was inspected to ensure that it was far enough away from the peritoneal edge. The mesh appeared in proper position overlying the entire myopectineal orifice. The mesh was secured using 3-0 Vicryl simple interrupted sutures in Bradley's ligament, the superior medial edge, and superior lateral edge of the mesh. The peritoneum was then closed over the mesh using a 3-0 V-lock running absorbable suture. I then began scoring the peritoneum along the left lower quadrant using scissors with electrocautery. The preperitoneal plane was entered and this was carefully dissected caudally along the inferior epigastric vessels. Careful dissection with scissors with electrocautery and blunt dissection was used to continue this dissection. I dissected far enough laterally to allow for mesh placement, and also dissected medially to identify the pubic arch and Bradley's ligament. The hernia sac was identified and carefully dissected posteriorly. The cord contents were also identified and the peritoneum was carefully dissected far enough posteriorly to allow for mesh placement. Once an adequate pocket was created, I then placed the mesh within the preperitoneal pocket and carefully unfolded it. The mesh was centered on the hernia defect with adequate overlap circumferentially. The inferior edge of the mesh was inspected to ensure that it was far enough away from the peritoneal edge. The mesh appeared in proper position overlying the entire myopectineal orifice. The mesh was secured using 3-0 Vicryl simple interrupted sutures in Bradley's ligament, the superior medial edge, and superior lateral edge of the mesh. The peritoneum was then closed over the mesh using a 3-0 V-lock running absorbable suture. The robotic instruments were removed. The robotic arms were disengaged from the ports and moved away from the bedside. The patient was flattened out in bed, the ports were removed under direct visualization, and the pneumoperitoneum was released. The skin of the incisions was approximated using 4-0 Monocryl subcuticular suture, and Exofin glue was applied on top. The patient was awakened from anesthesia, extubated, and transferred to recovery. Implants Large left and right 3DMax mid mesh Estimated Blood Loss 5 Complications No immediate complications Condition Stable Disposition Same day [facility] Billing Surgery - Charge Forward: Surgery Billing
== END 2024-04-03 16:56 | disposition home or self-care (01) ==
PROVIDERS: PCP Family Medicine; Visit Provider Surgery
PROC: 8E0Y4CZ Robotic Assisted Procedure of Lower Extremity, Percutaneous Endoscopic Approach (ICD-10-PCS; CPT 49650; principal; 2024-04-03 12:00)
DX: K40.20 Bilateral inguinal hernia, without obstruction or gangrene, not specified as recurrent (principal); I25.10 Atherosclerotic heart disease of native coronary artery without angina pectoris; I25.2 Old myocardial infarction; D72.829 Elevated white blood cell count, unspecified; K21.9 Gastro-esophageal reflux disease without esophagitis; E78.00 Pure hypercholesterolemia, unspecified; Z79.82 Long term (current) use of aspirin; Z98.890 Other specified postprocedural states; Z90.49 Acquired absence of other specified parts of digestive tract; Z95.5 Presence of coronary angioplasty implant and graft; Z87.891 Personal history of nicotine dependence; Z87.19 Personal history of other diseases of the digestive system; Z82.49 Family history of ischemic heart disease and other diseases of the circulatory system
CPT/HCPCS: 49650; S2900; A9270; C1781; J0690; J1100; J1596; J1885; J2003; J2405; J2704; J3010; J7120